=== PATIENT | male | born 1970 | race Caucasian/White ===

== ENCOUNTER 2017-04-14 05:56 | Inpatient (IN) | payer OTHER, SELFPAY ==
[2017-04-14] VITALS (10 sets, daily range): BP systolic 124–146; BP diastolic 72–81; PULSE 80–128; RESP 12–18; TEMP 36.6–37.1; O2SAT 94–98; BMI 39.7; BMI 39.8
--- NOTE | 2017-04-14 06:16 | EKG12_ITS ---
Test Reason : Blood Pressure : / mmHG Vent. Rate : 116 BPM Atrial Rate : 116 BPM P-R Int : 142 ms QRS Dur : 100 ms QT Int : 302 ms P-R-T Axes : 070 -15 066 degrees QTc Int : 419 ms Sinus tachycardia with Premature atrial complexes Septal infarct , age undetermined Abnormal ECG Confirmed by JERRY STEPHENSON, SOLA ([id number]), news video editor SHANTAL MEJIA ([id number]) on 04/17/2017 3:53:41 PM Referred By: ALEKSANDR Confirmed By:SOLA EDWARDS MD
[2017-04-14] MEDS: 0.9% Normal Saline 1,000 ML 1000 ML IV ×2 (06:26)
--- NOTE | 2017-04-14 06:28 | ED.VISSUMM ---
- ER Visit Summary Date of Service: 04/14/17 Chief Complaint: [] Lightheadedness with left leg pain History of Present Illness: The patient is a 46 M last 2 days he has had left leg pain. Gradual onset. He felt some chills yesterday. No vertigo. He stated that when he gets up he feels a little bit lightheaded. He noticed his left [place] was red when he came into the emergency department. He had checked it at home. No leg trauma. Never had that before. No PE or DVT risk factors. No home treatment. Physical Examination: Vital signs reviewed General: Well-nourished well-developed Head: Normocephalic atraumatic Eyes: Pupils equal round and reactive to light extraocular movements intact ENT: TMs clear no hemotympanum no trauma Neck: Nontender full range of motion Cardiovascular: Regular cardia with normal rhythm no murmurs normal S1-S2 Respiratory: No distress clear to auscultation bilaterally chest nontender Abdomen: Soft nontender nondistended normal bowel sounds no masses Back: Nontender no CVA tenderness Extremities: Lower extremity has a cellulitis with redness warmth and tenderness from the knee to the ankle. It is about 80% affected on the anterior portion. It wraps around the posterior portion to affect approximately 40%. The foot is spared. The thigh is spared. Neuro alert oriented cranial nerves II through XII intact normal strength sensation reflexes Test Results: [] Emergency Department Course and Treatment: [] This time I feel the patient has significant cellulitis. Started on IV fluids given morphine and vancomycin. Lab work obtained. Show white count 21.9. Chemistries normal except sodium 134. CO2 is 20. Lactate 0.9. Liver function tests normal. Coags pending. The patient has a cellulitis with sepsis. No evidence of severe sepsis or septic shock. EKG shows sinus at 116. The patient will need to be admitted. I do not feel he has a DVT. His foot is spared. This is definitely a cellulitic infection. Treatment Plan: [] Disposition: [] Impression: [] Left lower extremity cellulitis Sepsis syndrome This note was generated with [employer] dictation software. It may contain incorrect words, spelling, and punctuation that were not noted in review of the chart prior to signing ED Disposition - Plan for ED Patient: Chief Complaint: Dizziness Referrals: Care Physician,No Primary [Primary Care Provider] -
[2017-04-14 06:48] LABS: ALB/GLOB Ratio 0.7 RATIO (0.9-2.4); AST(SGOT) 21 U/L (15-37); Alanine Aminotransfer ALT/SGPT 24 U/L (16-61); Albumin, Serum 3.2 g/dL (3.2-5.0); Alkaline Phosphatase 72 U/L (45-117); Anion Gap 11 (5-15); BUN 17 mg/dL (7-18); BUN/Creat Ratio 15.2 RATIO (10-20); Calcium,Total 8.7 mg/dL (8.5-10.1); Chloride 103 mmol/L (98-107); Creatinine, Serum 1.12 mg/dL (0.70-1.30); EST Glomerular Filtration Rate 75 mL/min (>60); Est Glom Filt Rate - Afr Amer 91 mL/min (>60); Estimated Creatinine Clearance 101.18 ml/min; Globulin 4.6 g/dL (2.2-4.2); Glucose 123 mg/dL (74-106); Lactic Acid 0.9 mmol/L (0.4-2.0); Potassium 3.6 mmol/L (3.5-5.1); Protein, Total 7.8 g/dL (6.4-8.2); Sodium Level 134 mmol/L (136-145)
[2017-04-14 06:50] LABS: Absolute Lymphocyte Count 1.18 X10^3/ul (0.83-4.51); Basophil# 0.05 X10^3/uL; Basophil% 0.2 % (0-1); Differential Indicated SCAN CRITERIA MET; Eosinophil# 0.01 X10^3/uL; Hematocrit 36.5 % (40-54); Hemoglobin 11.9 g/dl (13.0-16.5); Lymphocyte # 1.18 X10^3/ul (4.0); Lymphocyte % 5.4 % (19-41); Mean Corp Hgb Conc 32.6 g/gl (32-36); Mean Corpuscular Hgb 25.9 pg (27.0-32.0); Mean Corpuscular Volume 79.3 fL (80-94); Mean Platelet Vol. 10.8 fl (6.2-12.0); Monocyte# 1.59 X10^3/uL; Monocyte% 7.3 % (0-10); Neutrophil # 18.97 X10^3/uL (2.7-7.7); Neutrophil % 86.7 % (47-70); POSITIVE COUNT NO; POSITIVE DIFFERENTIAL YES; POSITIVE MORPHOLOGY YES; Platelet Count 257 K/mm3 (150-450); RBC Distribution Width CV 15.5 % (11.6-14.6); RBC Distribution Width SD 44.2 fl (35.1-43.9); White Blood Count 21.9 K/mm3 (4.4-11.0)
[2017-04-14 06:52] LABS: International Normalized Ratio 1.3; Prothrombin Time (Protime)PT. 16.5 SECONDS (11.7-14.9)
--- NOTE | 2017-04-14 06:52 | PCM.HP.STD ---
Problem List (1) Anxiety and depression Status: Chronic (2) Obesity (BMI 30-39.9) Status: Chronic (3) Hyperlipidemia Status: Chronic Qualifiers: Hyperlipidemia type: unspecified Qualified Code(s): E78.5 - Hyperlipidemia, unspecified (4) GERD (gastroesophageal reflux disease) Status: Chronic Qualifiers: Esophagitis presence: esophagitis presence not specified Qualified Code(s): K21.9 - Gastro-esophageal reflux disease without esophagitis (5) Chronic back pain Status: Chronic Qualifiers: Back pain location: back pain in unspecified location Back pain laterality: unspecified Qualified Code(s): M54.9 - Dorsalgia, unspecified; G89.29 - Other chronic pain (6) RLS (restless legs syndrome) Status: Chronic (7) Insomnia Status: Chronic Qualifiers: Insomnia type: unspecified Qualified Code(s): G47.00 - Insomnia, unspecified (8) Left leg cellulitis Status: Acute (9) Sepsis Status: Acute Qualifiers: Sepsis type: sepsis due to unspecified organism Qualified Code(s): A41.9 - Sepsis, unspecified organism History of Present Illness Date of Admission: 04/14/17 Chief Complaint: Chills, LLE pain, erythema The patient is a 46 y/o M w/ PMHx: Chronic Back Pain, RLS, Anxiety and Depression, Obesity, HLD, RLS, Insomnia, GERD who presents to the [facility] ED on 04/14/17 with history of LLE pain, progressively worsening with onset erythema extending from the ankle to knee, increased warmth to touch, increasing edema with associated onset subjective fever and chills over the last 4 days, more pronounced sxs x 24 hours. 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 He denies any injury or cut to the leg but does have abrasions and cannot say the etiology or event but R > L. In the ED work-up included T 98.4, HR 128-->106 after 1L NS, continued hydration ongoing in the ED w/ additional 1L NS, BP 146/7500>127/81, RR 12, 97% on RA, CBC w/ WBC 21.9, Hgb 11.9, Plts 257, coags pending, CMP w/ Na 134, CO2 20, glucose 123, LA 0.9, Bld Cx x 2 obtained per ED and pending. In the ED patient administered IVFs and vanc in addition to morphine x 1. Past Medical History Past Medical History (Chronic Problems): Chronic Problems Anxiety and depression (Chronic) Obesity (BMI 30-39.9) (Chronic) Hyperlipidemia (Chronic) GERD (gastroesophageal reflux disease) (Chronic) Chronic back pain (Chronic) RLS (restless legs syndrome) (Chronic) Insomnia (Chronic) Allergies celecoxib [From Celebrex] Allergy (Verified 04/14/17 05:57) Hives Home Medications: Ambulatory Orders Medication Instructions Recorded Citalopram Hydrobromide [Celexa] 40 mg PO DAILY 06/21/13 Lovastatin [Mevacor] 40 mg PO DAILY 06/21/13 Omeprazole [Prilosec] 40 mg PO DAILY 06/21/13 Pramipexole Di-HCl [Mirapex] 0.125 mg PO DAILY 06/21/13 Tizanidine HCl [Zanaflex] 8 mg PO Q8H 06/21/13 Trazodone HCl [Desyrel] 100 mg PO QHS 06/21/13 Sucralfate [Carafate] 1 gm PO 4X/DAY #60 tablet 08/20/14 Ibuprofen [Motrin] 800 mg PO TID PRN PRN #20 tablet 01/18/15 Surgical History: no surgical history Psychiatric History: Anxiety, Depression Lives: Spouse/ Significant Other Smoking Status: Current every day smoker - Vap usage, equivalent 1-2 cig per day he notes. Tobacco Use: Cigarettes Alcohol: None Drugs: None - *Family History Maternal History Items: - - Mother with history of colon CA, at 74 y/o. Paternal History Items: - - Father with history of CAD, [place] age 65 y/o. Review of Systems Constitutional: Reports: Chills, Fever, Malaise, Weakness, Fatigue. Denies: Weight Change HEENT: Denies: Head Aches, Sinus Congestion, Sinus Drainage Cardiovascular: Denies: Chest Pain, Palpitations Respiratory: Denies: Cough, Shortness of breath at rest, Sputum production Gastrointestinal: Denies: Abdominal Pain, Nausea, Vomiting Genitourinary: Denies: Dysuria Musculoskeletal: Reports: Back Pain, Joint stiffness, Joint swelling, Joint Tenderness, Leg Pain. Denies: Joint Pain Skin: Reports: Skin Changes. Denies: Rash, Wounds Neurological: Denies: Numbness, Tingling, Focal weakness Psychiatric: Reports: Anxiety, Depression. Denies: Homicidal Ideations, Suicidal Ideations Hematologic/ Lymphatic: Denies: Easy Bruising, Easy Bleeding VTE Information - Inpt Only VTE Present on Admission: No VTE Mechan Device Prophylaxis: SCD's VTE Pharm Prophylaxis ordered?: Yes Patient Problems: Active and Suspected Problems Left leg cellulitis (Acute) Sepsis (Acute) Subjective: Seated upright in the ED bed, fatigued appearance, HR improved, low 100 on telemetry currently. Objective: Physical Examination: General: awake, alert, oriented x 3 and cooperative, seated upright in the ED bed in no apparent distress, fatigued. Skin: normal color, turgor, no icterus, cyanosis except occasional various staged, non-infected appearing abrasion to BL LE [place] primarily, R>L, LLE ankle to distal knee, circumferential erythema, warm to touch, mild edema, TTP. HEENT: AT/NC, EOMI, PERRLA, mildly dry MM, no carotid bruits or JVD noted. Lungs: CTA bilaterally, moderate effort, mild decrease BL bases, no rales, ronchi or wheezing. Heart: Tachycardic with regular rhythm; no gallop, rub audible. Abdomen: soft, obese, NTTP, ND, normal BS, no HSM. Extremities: no cyanosis, clubbing, see skin. Neurological: patient awake, alert, oriented x 3; cognitive function intact; pupils equally reactive to light and accomodation; cranial nerves II-XII grossly normal, moving all 4 extremities, no focal deficits, strength mildly to moderately globally decreased secondary to acute presentation. Psychiatric: affect appears normal, no acute evidence of depressive or anxiety feelings. - Physical Exam Vital Signs Temp Pulse Resp BP Pulse Ox 98.4 F 106 H 12 127/81 H 97 04/14/17 05:57 04/14/17 06:29 04/14/17 06:29 04/14/17 06:29 04/14/17 06:29 Oxygen Flow Rate 2 Oxygen Delivery Method Room Air Weight: 326 lb 8.073 oz Body Mass Index (BMI) 39.7 Laboratory Tests Past 24 Hrs 04/14/17 04/14/17 04/14/17 06:10 06:10 06:10 WBC 21.9 H RBC 4.60 Hgb 11.9 L Hct 36.5 L MCV 79.3 L MCH 25.9 L MCHC 32.6 RDW 15.5 H RDW Differential 44.2 H Plt Count 257 MPV 10.8 Immature Gran % (Auto) 0.400 Neut % (Auto) 86.7 H Lymph % (Auto) 5.4 L [place] % (Auto) 7.3 Eos % (Auto) 0.0 Baso % (Auto) 0.2 Absolute Neuts (auto) 19.0 H Absolute Lymphs (auto) 1.18 Total Counted Pending PT Pending INR Pending APTT Pending Sodium 134 L Potassium 3.6 Chloride 103 Carbon Dioxide 20.0 L Anion Gap 11 BUN 17 Creatinine 1.12 Estim Creat Clear Calc 101.18 Est GFR (MDRD) Af Amer 91 Est GFR (MDRD) Non-Af 75 BUN/Creatinine Ratio 15.2 Glucose 123 H Lactic Acid Calcium 8.7 Total Bilirubin 0.50 AST 21 ALT 24 Alkaline Phosphatase 72 Total Protein 7.8 Albumin 3.2 Globulin 4.6 H Albumin/Globulin Ratio 0.7 L 04/14/17 06:10 WBC RBC Hgb Hct MCV MCH MCHC RDW RDW Differential Plt Count MPV Immature Gran % (Auto) Neut % (Auto) Lymph % (Auto) [place] % (Auto) Eos % (Auto) Baso % (Auto) Absolute Neuts (auto) Absolute Lymphs (auto) Total Counted PT INR APTT Sodium Potassium Chloride Carbon Dioxide Anion Gap BUN Creatinine Estim Creat Clear Calc Est GFR (MDRD) Af Amer Est GFR (MDRD) Non-Af BUN/Creatinine Ratio Glucose Lactic Acid 0.9 Calcium Total Bilirubin AST ALT Alkaline Phosphatase Total Protein Albumin Globulin Albumin/Globulin Ratio Assessment/Plan Active and Suspected Problems Left leg cellulitis (Acute) Sepsis (Acute) The patient is a 46 y/o M w/ PMHx: Chronic Back Pain, RLS, Anxiety and Depression, Obesity, HLD, RLS, Insomnia, GERD, Tobacco who presents to the [facility] ED on 04/14/17 with history of LLE pain, progressively worsening with onset erythema extending from the ankle to knee, increased warmth to touch, increasing edema with associated onset subjective fever and chills over the last 4 days, more pronounced sxs x 24 hours. (1) Acute Sepsis secondary to Acute LLE Extremity Cellulitis: Admission CBC w/ WBC 21.9, L shift, tachycardic, LA normal, afebrile in the ED but noted subjective at home. Will admit to [facility], maintain on IV vancomycin given severity of appearance and de-escalate as able, plan repeat CBC in AM, continue affected extremity elevation above heart when seated and in bed, monitor erythema outline with VS checks. LLE DVT US ordered, pending. (2) Hyponatremia, Mild: Admission Na 134, likely hypovolemic, mild, secondary to #1, continue hydration, repeat BMP in AM. (3) Microcytic Anemia, ? New, Chronic; Unclear onset, prior labs from 1563-3417 normal, will obtain stool guiac, iron panel, ferritin. Start Fe Supplementation. (4) Hyperglycemia: Admission glucose 123, HgBA1c pending. (5) Obesity: Weight loss and lifestyle changes encouraged. Nutrition consulted for education. (6) Tobacco Abuse: Encouraged cessation, inpatient consultation per RT. (7) Chronic Back Pain: Maintain on home regimen zanaflex, PRN motrin, encourage frequent positioning. (8) RLS: Continue home requip. (9) Anxiety and Depression, Insomnia: Maintain on home celexa, trazodone. (10) GERD: Famotidine, sucralafate. (11) DVT prophylaxis: SCDs, lovenox. Code Visit Inpatient E&M: 65827 Init Hosp L3
[2017-04-14 06:53] LABS: Partial Thromboplast Time 39.2 Seconds (24.1-36.2)
--- NOTE | 2017-04-14 07:02 | HP.PCM_ITS ---
Problem List (1) Anxiety and depression Status: Chronic (2) Obesity (BMI 30-39.9) Status: Chronic (3) Hyperlipidemia Status: Chronic Qualifiers: Hyperlipidemia type: unspecified Qualified Code(s): E78.5 - Hyperlipidemia , unspecified (4) GERD (gastroesophageal reflux disease) Status: Chronic Qualifiers: Esophagitis presence: esophagitis presence not specified Qualified Code(s) : K21.9 - Gastro-esophageal reflux disease without esophagitis (5) Chronic back pain Status: Chronic Qualifiers: Back pain location: back pain in unspecified location Back pain laterality : unspecified Qualified Code(s): M54.9 - Dorsalgia, unspecified; G89.29 - Other chronic pain (6) RLS (restless legs syndrome) Status: Chronic (7) Insomnia Status: Chronic Qualifiers: Insomnia type: unspecified Qualified Code(s): G47.00 - Insomnia, unspecified (8) Left leg cellulitis Status: Acute (9) Sepsis Status: Acute Qualifiers: Sepsis type: sepsis due to unspecified organism Qualified Code(s): A41.9 - Sepsis, unspecified organism History of Present Illness Date of Admission: 04/14/17 Chief Complaint: Chills, LLE pain, erythema The patient is a 46 y/o M w/ PMHx: Chronic Back Pain, RLS, Anxiety and Depression, Obesity, HLD, RLS, Insomnia, GERD who presents to the [facility] ED on with history of LLE pain, progressively worsening with onset erythema extending from the ankle to knee, increased warmth to touch, increasing edema with associated onset subjective fever and chills over the last 4 days, more pronounced sxs x 24 hours. 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 He denies any injury or cut to the leg but does have abrasions and cannot say the etiology or event but R > L. In the ED work-up included T 98.4, HR 128-->106 after 1L NS, continued hydration ongoing in the ED w/ additional 1L NS, BP 146/7500>127/81, RR 12, 97% on RA, CBC w/ WBC 21.9, Hgb 11.9, Plts 257, coags pending, CMP w/ Na 134, CO2 20, glucose 123, LA 0.9, Bld Cx x 2 obtained per ED and pending. In the ED patient administered IVFs and vanc in addition to morphine x 1. Past Medical History Past Medical History (Chronic Problems): Chronic Problems Anxiety and depression (Chronic) Obesity (BMI 30-39.9) (Chronic) Hyperlipidemia (Chronic) GERD (gastroesophageal reflux disease) (Chronic) Chronic back pain (Chronic) RLS (restless legs syndrome) (Chronic) Insomnia (Chronic) Allergies celecoxib [From Celebrex] Allergy (Verified 04/14/17 05:57) Hives Home Medications: Ambulatory Orders Medication Instructions Recorded Citalopram Hydrobromide [Celexa] 40 mg PO DAILY 06/21/13 Lovastatin [Mevacor] 40 mg PO DAILY 06/21/13 Omeprazole [Prilosec] 40 mg PO DAILY 06/21/13 Pramipexole Di-HCl [Mirapex] 0.125 mg PO DAILY 06/21/13 Tizanidine HCl [Zanaflex] 8 mg PO Q8H 06/21/13 Trazodone HCl [Desyrel] 100 mg PO QHS 06/21/13 Sucralfate [Carafate] 1 gm PO 4X/DAY #60 tablet 08/20/14 Ibuprofen [Motrin] 800 mg PO TID PRN PRN #20 tablet 01/18/15 Surgical History: no surgical history Psychiatric History: Anxiety, Depression Lives: Spouse/ Significant Other Smoking Status: Current every day smoker - Vap usage, equivalent 1-2 cig per day he notes. Tobacco Use: Cigarettes Alcohol: None Drugs: None - *Family History Maternal History Items: - - Mother with history of colon CA, at 74 y/o. Paternal History Items: - - Father with history of CAD, [place] age 65 y/o. Review of Systems Constitutional: Reports: Chills, Fever, Malaise, Weakness, Fatigue. Denies: Weight Change HEENT: Denies: Head Aches, Sinus Congestion, Sinus Drainage Cardiovascular: Denies: Chest Pain, Palpitations Respiratory: Denies: Cough, Shortness of breath at rest, Sputum production Gastrointestinal: Denies: Abdominal Pain, Nausea, Vomiting Genitourinary: Denies: Dysuria Musculoskeletal: Reports: Back Pain, Joint stiffness, Joint swelling, Joint Tenderness, Leg Pain. Denies: Joint Pain Skin: Reports: Skin Changes. Denies: Rash, Wounds Neurological: Denies: Numbness, Tingling, Focal weakness Psychiatric: Reports: Anxiety, Depression. Denies: Homicidal Ideations, Suicidal Ideations Hematologic/ Lymphatic: Denies: Easy Bruising, Easy Bleeding VTE Information - Inpt Only VTE Present on Admission: No VTE Mechan Device Prophylaxis: SCD's VTE Pharm Prophylaxis ordered?: Yes Patient Problems: Active and Suspected Problems Left leg cellulitis (Acute) Sepsis (Acute) Subjective: Seated upright in the ED bed, fatigued appearance, HR improved, low 100 on telemetry currently. Objective: Physical Examination: General: awake, alert, oriented x 3 and cooperative, seated upright in the ED bed in no apparent distress, fatigued. Skin: normal color, turgor, no icterus, cyanosis except occasional various staged, non-infected appearing abrasion to BL LE [place] primarily, R>L, LLE ankle to distal knee, circumferential erythema, warm to touch, mild edema, TTP. HEENT: AT/NC, EOMI, PERRLA, mildly dry MM, no carotid bruits or JVD noted. Lungs: CTA bilaterally, moderate effort, mild decrease BL bases, no rales, ronchi or wheezing. Heart: Tachycardic with regular rhythm; no gallop, rub audible. Abdomen: soft, obese, NTTP, ND, normal BS, no HSM. Extremities: no cyanosis, clubbing, see skin. Neurological: patient awake, alert, oriented x 3; cognitive function intact; pupils equally reactive to light and accomodation; cranial nerves II-XII grossly normal, moving all 4 extremities, no focal deficits, strength mildly to moderately globally decreased secondary to acute presentation. Psychiatric: affect appears normal, no acute evidence of depressive or anxiety feelings. - Physical Exam Vital Signs Temp Pulse Resp BP Pulse Ox 98.4 F 106 H 12 127/81 H 97 04/14/17 05:57 04/14/17 06:29 04/14/17 06:29 04/14/17 06:29 04/14/17 06:29 Oxygen Flow Rate 2 Oxygen Delivery Method Room Air Weight: 326 lb 8.073 oz Body Mass Index (BMI) 39.7 Laboratory Tests Past 24 Hrs 04/14/17 04/14/17 04/14/17 06:10 06:10 06:10 WBC 21.9 H RBC 4.60 Hgb 11.9 L Hct 36.5 L MCV 79.3 L MCH 25.9 L MCHC 32.6 RDW 15.5 H RDW Differential 44.2 H Plt Count 257 MPV 10.8 Immature Gran % (Auto) 0.400 Neut % (Auto) 86.7 H Lymph % (Auto) 5.4 L [place] % (Auto) 7.3 Eos % (Auto) 0.0 Baso % (Auto) 0.2 Absolute Neuts (auto) 19.0 H Absolute Lymphs (auto) 1.18 Total Counted Pending PT Pending INR Pending APTT Pending Sodium 134 L Potassium 3.6 Chloride 103 Carbon Dioxide 20.0 L Anion Gap 11 BUN 17 Creatinine 1.12 Estim Creat Clear Calc 101.18 Est GFR (MDRD) Af Amer 91 Est GFR (MDRD) Non-Af 75 BUN/Creatinine Ratio 15.2 Glucose 123 H Lactic Acid Calcium 8.7 Total Bilirubin 0.50 AST 21 ALT 24 Alkaline Phosphatase 72 Total Protein 7.8 Albumin 3.2 Globulin 4.6 H Albumin/Globulin Ratio 0.7 L 04/14/17 06:10 WBC RBC Hgb Hct MCV MCH MCHC RDW RDW Differential Plt Count MPV Immature Gran % (Auto) Neut % (Auto) Lymph % (Auto) [place] % (Auto) Eos % (Auto) Baso % (Auto) Absolute Neuts (auto) Absolute Lymphs (auto) Total Counted PT INR APTT Sodium Potassium Chloride Carbon Dioxide Anion Gap BUN Creatinine Estim Creat Clear Calc Est GFR (MDRD) Af Amer Est GFR (MDRD) Non-Af BUN/Creatinine Ratio Glucose Lactic Acid 0.9 Calcium Total Bilirubin AST ALT Alkaline Phosphatase Total Protein Albumin Globulin Albumin/Globulin Ratio Assessment/Plan Active and Suspected Problems Left leg cellulitis (Acute) Sepsis (Acute) The patient is a 46 y/o M w/ PMHx: Chronic Back Pain, RLS, Anxiety and Depression, Obesity, HLD, RLS, Insomnia, GERD, Tobacco who presents to the [facility] ED on 04/14/17 with history of LLE pain, progressively worsening with onset erythema extending from the ankle to knee, increased warmth to touch, increasing edema with associated onset subjective fever and chills over the last 4 days, more pronounced sxs x 24 hours. (1) Acute Sepsis secondary to Acute LLE Extremity Cellulitis: Admission CBC w/ WBC 21.9, L shift, tachycardic, LA normal, afebrile in the ED but noted subjective at home. Will admit to [facility], maintain on IV vancomycin given severity of appearance and de-escalate as able, plan repeat CBC in AM, continue affected extremity elevation above heart when seated and in bed, monitor erythema outline with VS checks. LLE DVT US ordered, pending. (2) Hyponatremia, Mild: Admission Na 134, likely hypovolemic, mild, secondary to #1, continue hydration, repeat BMP in AM. (3) Microcytic Anemia, ? New, Chronic; Unclear onset, prior labs from [id number] normal, will obtain stool guiac, iron panel, ferritin. Start Fe Supplementation. (4) Hyperglycemia: Admission glucose 123, HgBA1c pending. (5) Obesity: Weight loss and lifestyle changes encouraged. Nutrition consulted for education. (6) Tobacco Abuse: Encouraged cessation, inpatient consultation per RT. (7) Chronic Back Pain: Maintain on home regimen zanaflex, PRN motrin, encourage frequent positioning. (8) RLS: Continue home requip. (9) Anxiety and Depression, Insomnia: Maintain on home celexa, trazodone. (10) GERD: Famotidine, sucralafate. (11) DVT prophylaxis: SCDs, lovenox. Code Visit Inpatient E&M: 77316 Init Hosp L3
--- NOTE | 2017-04-14 07:57 | VDLE_ITS ---
Reason For Study: swelling Procedure LEFT Exam performed portable in patient room. GSV is normal. The exam was diagnostic. CFV is compressible, spontaneous, phasic, A preliminary report was called and/or faxed competent, and demonstrates normal to MS3 remote sensing engineer. augmentation. FV is compressible, spontaneous, phasic, competent and demonstrates normal augmentation. POP V is compressible, spontaneous, phasic, competent and demonstrates normal augmentation. T/P Trunk is compressible. PTV is compressible. LT PerV is compressible. Interpretation Summary There is no evidence of left lower extremity deep vein thrombosis. Left greater saphenous vein appears patent and compressible segmentally. Ordering Physician: Ada Pulido Performed By: Refugio Cunningham RVTheodore
[2017-04-14] MEDS: oxyCODONE 5 MG Tablet PO ×2 (08:52→20:32)
[2017-04-14] MEDS: 0.9% Normal Saline 1,000 ML 150 ML IV ×2 (08:53→16:28)
--- NOTE | 2017-04-14 10:19 | CASEMGMT ---
Face to Face with patient for initial transition planning/care coordination assessment. RN MARCI introduced self and role at [facility], pt voices understanding and consents to assessment at this time. Pt is sitting up in chair in no distress at this time. Pt is A/O x4 at this time and answers all questions appropriately at this time. Care providers, pharmacy, and demographics verified/updated. See attached link. Pt voices no further concerns/needs at this time. Advised pt to ask for CM if any further questions/concerns/needs arise, voices understanding. CM to follow for any further discharge planning/needs. PLAN: [place] [facility]
[2017-04-14] MEDS: Docusate Sodium 100 MG Capsule PO (10:30)
[2017-04-14] MEDS: Citalopram 40 MG TABLET PO (10:30)
[2017-04-14] MEDS: Pramipexole Di-HCl 0.125 MG Tablet PO (10:30)
[2017-04-14] MEDS: Pantoprazole Sodium 40 MG Tablet PO (10:30)
[2017-04-14] MEDS: Enoxaparin 40 MG/0.4 ML Syringe SC (10:30)
[2017-04-14 10:55] LABS: Ferritin 111 ng/mL (26-388); Iron 12 ug/dL (65-175); Iron Binding Capacity,Total 347 ug/dL (250-450); Magnesium 1.9 mg/dL (1.6-2.6); PERCENT IRON SATURATION 3.5 % (15.0-55.0)
[2017-04-14] MEDS: Sucralfate 1 GM Tablet PO ×3 (11:51→20:26)
[2017-04-14] MEDS: tiZANidine HCl 2 MG Tablet 8 MG PO ×2 (13:19→20:26)
[2017-04-14] MEDS: Ferrous Gluconate 325 MG Tablet PO (16:29)
[2017-04-14] MEDS: Atorvastatin Calcium 10 MG Tablet PO (20:26)
[2017-04-15 02:00] VITALS: BP 139/77; PULSE 79; RESP 16; TEMP 36.6; O2SAT 96
[2017-04-15] MEDS: 0.9% Normal Saline 1,000 ML 150 ML IV ×3 (02:11→21:03)
[2017-04-15] MEDS: Sucralfate 1 GM Tablet PO ×4 (06:45→21:07)
[2017-04-15] MEDS: tiZANidine HCl 2 MG Tablet 8 MG PO ×3 (06:45→21:06)
[2017-04-15] MEDS: oxyCODONE 5 MG Tablet PO ×2 (06:47→13:24)
[2017-04-15 07:09] LABS: Absolute Lymphocyte Count 1.39 X10^3/ul (0.83-4.51); Absolute Neutrophil Count 11.7 X10^3/uL (2.0-7.7); Basophil# 0.03 X10^3/uL; Basophil% 0.2 % (0-1); Eosinophil# 0.23 X10^3/uL; Eosinophils% 1.5 % (0-5); Hematocrit 31.4 % (40-54); Hemoglobin 10.2 g/dl (13.0-16.5); Lymphocyte # 1.39 X10^3/ul (4.0); Lymphocyte % 9.4 % (19-41); Mean Corp Hgb Conc 32.5 g/gl (32-36); Mean Corpuscular Hgb 26.4 pg (27.0-32.0); Mean Corpuscular Volume 81.1 fL (80-94); Monocyte# 1.44 X10^3/uL; Monocyte% 9.7 % (0-10); Neutrophil % 78.9 % (47-70); Platelet Count 218 K/mm3 (150-450); RBC Distribution Width CV 15.7 % (11.6-14.6); RBC Distribution Width SD 46.1 fl (35.1-43.9); Red Blood Count 3.87 M/mm3 (4.6-6.2); White Blood Count 14.8 K/mm3 (4.4-11.0)
--- NOTE | 2017-04-15 07:16 | PCM.PN.HOSP ---
Patient Problems: Active and Suspected Problems Left leg cellulitis (Acute) Sepsis (Acute) Subjective: The patient is a 46 y/o M w/ PMHx: Chronic Back Pain, RLS, Anxiety and Depression, Obesity, HLD, RLS, Insomnia, GERD, Tobacco who presents to the [facility] ED on 04/14/17 with history of LLE pain, progressively worsening with onset erythema extending from the ankle to knee, increased warmth to touch, increasing edema with associated onset subjective fever and chills over the last 4 days, more pronounced sxs x 24 hours. Admission CBC w/ WBC 21.9, L shift, tachycardic, LA normal, afebrile in the ED but noted subjective at home. Admitted to [facility], maintained on IV vancomycin given severity of appearance and de-escalate as able, 04/15/17 CBC w/ WBC 14.8 with improved L shift, improved appearance LLE, continue to trend CBC, continue affected extremity elevation above heart when seated and in bed, add PHILLIP wrap with elevation, monitor erythema outline with VS checks. LLE DVT US ordered, preliminary negative. Admission Na 134, likely hypovolemic, mild, secondary to #1, hydration administered, 04/15/17 Na 140. Microcytic Anemia, ? New, Chronic; Unclear onset, prior labs from [id number] normal, negative stool guiac, iron panel, ferritin w/ low Fe, low Fe saturation, normal ferritin consistent with Fe Deficiency Anemia. Maintained on Fe Supplementation. Admission glucose 123, HgBA1c 6.0%. Patient overnight with no acute events per self and per nursing report. He does state that left lower extremity does look improved in appearance with less redness but continues to be uncomfortable and tender to palpation with mild edema. DVT preliminary results yesterday negative for acute DVT. Patient denies fevers, chills, nausea, emesis, abdominal pain, chest pain or dyspnea. Objective: Physical Examination: General: awake, alert, oriented x 3 and cooperative, seated upright in the bed in no apparent distress. Skin: normal color, turgor, no icterus, cyanosis except occasional various staged, non-infected appearing abrasion to BL LE [place] primarily, R>L. Improved and receding LLE ankle to distal knee, circumferential erythema, less warm to touch, still mild edema, still TTP but improved from day prior. HEENT: AT/NC, EOMI, PERRLA, MMM. Lungs: CTA bilaterally, moderate effort, mild decrease BL bases, no rales, ronchi or wheezing. Heart: Tachycardic with regular rhythm; no gallop, rub audible. Abdomen: soft, obese, NTTP, ND, normal BS. Extremities: no cyanosis, clubbing, see skin. Neurological: patient awake, alert, oriented x 3; cognitive function intact; pupils equally reactive to light and accomodation; cranial nerves II-XII grossly normal, moving all 4 extremities, no focal deficits, strength improved, mildly globally decreased. Psychiatric: affect appears normal, no acute evidence of depressive or anxiety feelings. Vitals/I&O's: Vital Signs Temp Pulse Resp BP Pulse Ox 97.9 F 79 16 139/77 H 96 04/15/17 02:00 04/15/17 02:00 04/15/17 02:00 04/15/17 02:00 04/15/17 02:00 Oxygen Delivery Method Room Air Weight: 326 lb 8.073 oz Body Mass Index (BMI) 39.7 Intake and Output for Last 24 Hours 04/13/17 04/14/17 04/15/17 23:59 23:59 23:59 Intake Total 3287 / 3287 2570 / 2570 Output Total 600 / 600 Balance 3287 / 3287 1970 / 1970 Microbiology Past 72 Hours 04/14/17 17:30 Stool Stool Occult Blood (MANI) - Final Laboratory Results 04/15/17 05:18: Sodium Pending, Potassium Pending, Chloride Pending, Carbon Dioxide Pending, Anion Gap Pending, BUN Pending, Creatinine Pending, Est GFR (MDRD) Af Amer Pending, Est GFR (MDRD) Non-Af Pending, BUN/Creatinine Ratio Pending, Glucose Pending, Calcium Pending 04/15/17 05:18: WBC Pending, RBC Pending, Hgb Pending, Hct Pending, MCV Pending, MCH Pending, MCHC Pending, RDW Pending, RDW Differential Pending, Plt Count Pending, Neut % (Auto) Pending, Absolute Neuts (auto) Pending, Total Counted Pending Current Medications Acetaminophen (Tylenol) 650 mg PO Q6H PRN PRN PRN Reason: Mild Pain (scale 0-3)/T>100.7 Al Hydroxide/Mg Hydroxide (Mylanta Ii) 30 ml PO Q6H PRN PRN PRN Reason: Gastric burning Atorvastatin Calcium (Lipitor) 10 mg PO DAILY@2200 COUNTS [facility]CLUDE 234 BEDS AT THE [facility] Last Admin: 04/14/17 20:26 Dose: 10 mg Citalopram Hydrobromide (Celexa) 40 mg PO DAILY COUNTS INCLUDE 234 BEDS AT THE [facility] Last Admin: 04/14/17 10:30 Dose: 40 mg Docusate Sodium (Colace) 100 mg PO BID COUNTS INCLUDE 234 BEDS AT THE [facility] Last Admin: 04/14/17 20:29 Dose: Not Given Enoxaparin Sodium (Lovenox) 40 mg SC DAILY@1000 COUNTS [facility]CLUDE 234 BEDS AT THE [facility] Last Admin: 04/14/17 10:30 Dose: 40 mg [facility] Last Admin: 04/14/17 16:29 Dose: 325 mg Hydralazine HCl (Apresoline) 10 mg IV Q4H PRN PRN PRN Reason: SBP > 160 Sodium Chloride () 1,000 mls @ 150 mls/hr IV .Q6H40M COUNTS INCLUDE 234 BEDS AT THE [facility] Last Admin: 04/15/17 02:11 Dose: 150 mls/hr Vancomycin HCl 1,500 mg/ (Sodium Chloride) 530 mls @ 250 mls/hr IV Q12H COUNTS INCLUDE 234 BEDS AT THE [facility] Last Admin: 04/15/17 03:50 Dose: 250 mls/hr Ibuprofen (Motrin) 800 mg PO TID PRN PRN Reason: PAIN Magnesium Hydroxide (Milk Of Magnesia) 30 ml PO DAILY PRN PRN PRN Reason: Constipation Morphine Sulfate (Morphine) 2 - 4 mg IV Q3H PRN PRN PRN Reason: Severe Pain (pain scale 6-10) Last Admin: 04/14/17 13:17 Dose: 4 mg Morphine Sulfate (Morphine) 1 - 2 mg IV Q4H PRN PRN PRN Reason: Moderate Pain (pain scale 4-5) Nutritional Formula (Lactose Free) (Ensure Enlive) 120 ml PO 4X/DAY COUNTS INCLUDE 234 BEDS AT THE [facility] Last Admin: 04/14/17 20:29 Dose: Not Given Ondansetron HCl (Zofran) 4 mg IV Q8H PRN PRN PRN Reason: NAUSEA Oxycodone HCl (Oxyir) 5 mg PO Q4H PRN PRN PRN Reason: Moderate Pain (pain scale 4-5) Last Admin: 04/15/17 06:47 Dose: 5 mg Pantoprazole Sodium (Protonix) 40 mg PO DAILY COUNTS INCLUDE 234 BEDS AT THE [facility] Last Admin: 04/14/17 10:30 Dose: 40 mg Pramipexole Dihydrochloride (Mirapex) 0.125 mg PO DAILY COUNTS INCLUDE 234 BEDS AT THE [facility] Last Admin: 04/14/17 10:30 Dose: 0.125 mg Promethazine HCl (Phenergan (Ll)) 12.5 mg IV Q6H PRN PRN PRN Reason: NAUSEA/VOMITING Psyllium Hydrophilic Mucilloid (Metamucil) 1 packet PO DAILY PRN PRN PRN Reason: CONSTIPATION Sodium Chloride () 5 - 30 ml IV UD PRN PRN Reason: SALINE FLUSH Sucralfate (Carafate) 1 gm PO 1HR_ACHS COUNTS INCLUDE 234 BEDS AT THE [facility] Last Admin: 04/15/17 06:45 Dose: 1 gm Tizanidine HCl (Zanaflex) 8 mg PO Q8 COUNTS INCLUDE 234 BEDS AT THE [facility] Last Admin: 04/15/17 06:45 Dose: 8 mg Trazodone HCl (Desyrel) 100 mg PO QHS COUNTS INCLUDE 234 BEDS AT THE [facility] Last Admin: 04/14/17 20:26 Dose: 100 mg Assessment/Plan Active and Suspected Problems Left leg cellulitis (Acute) Sepsis (Acute) The patient is a 46 y/o M w/ PMHx: Chronic Back Pain, RLS, Anxiety and Depression, Obesity, HLD, RLS, Insomnia, GERD, Tobacco who presents to the [facility] ED on 04/14/17 with history of LLE pain, progressively worsening with onset erythema extending from the ankle to knee, increased warmth to touch, increasing edema with associated onset subjective fever and chills over the last 4 days, more pronounced sxs x 24 hours. (1) Acute Sepsis secondary to Acute LLE Extremity Cellulitis: Admission CBC w/ WBC 21.9, L shift, tachycardic, LA normal, afebrile in the ED but noted subjective at home. Admitted to [facility], maintained on IV vancomycin given severity of appearance and de-escalate as able, 04/15/17 CBC w/ WBC 14.8 with improved L shift, improved appearance LLE, continue to trend CBC, continue affected extremity elevation above heart when seated and in bed, add PHILLIP wrap with elevation, monitor erythema outline with VS checks. LLE DVT US ordered, preliminary negative. (2) Hyponatremia, Mild: Admission Na 134, likely hypovolemic, mild, secondary to #1, hydration administered, 04/15/17 Na 140. (3) Microcytic Anemia, ? New, Chronic; Unclear onset, prior labs from 3483-1770 normal, negative stool guiac, iron panel, ferritin w/ low Fe, low Fe saturation, normal ferritin consistent with Fe Deficiency Anemia. Maintained on Fe Supplementation. (4) Hyperglycemia: Admission glucose 123, HgBA1c 6.0%. (5) Obesity: Weight loss and lifestyle changes encouraged. Nutrition consulted for education. (6) Tobacco Abuse: Encouraged cessation, inpatient consultation per RT. (7) Chronic Back Pain: Maintain on home regimen zanaflex, PRN motrin, encourage frequent positioning. (8) RLS: Continue home requip. (9) Anxiety and Depression, Insomnia: Maintain on home celexa, trazodone. (10) GERD: Famotidine, sucralafate. (11) DVT prophylaxis: SCDs, lovenox. Code Visit Inpatient E&M: 92125 Subs Hosp L2
[2017-04-15 07:23] VITALS: O2SAT 96
[2017-04-15 07:30] LABS: POSITIVE COUNT NO; POSITIVE DIFFERENTIAL NO; POSITIVE MORPHOLOGY NO
[2017-04-15 08:19] LABS: Anion Gap 9 (5-15); BUN 11 mg/dL (7-18); BUN/Creat Ratio 12.1 RATIO (10-20); Calcium,Total 7.5 mg/dL (8.5-10.1); Chloride 109 mmol/L (98-107); Creatinine, Serum 0.91 mg/dL (0.70-1.30); EST Glomerular Filtration Rate 95 mL/min (>60); Est Glom Filt Rate - Afr Amer 115 mL/min (>60); Estimated Creatinine Clearance 121.23 ml/min; Glucose 80 mg/dL (74-106); Sodium Level 140 mmol/L (136-145)
[2017-04-15] MEDS: Ferrous Gluconate 325 MG Tablet PO ×2 (08:28→16:38)
[2017-04-15 08:38] VITALS: BP 98/59; PULSE 76; RESP 16; TEMP 36.6; O2SAT 96
[2017-04-15] MEDS: Docusate Sodium 100 MG Capsule PO (09:52)
[2017-04-15] MEDS: Citalopram 40 MG TABLET PO (09:52)
[2017-04-15] MEDS: Enoxaparin 40 MG/0.4 ML Syringe SC (09:53)
[2017-04-15] MEDS: Pantoprazole Sodium 40 MG Tablet PO (09:53)
[2017-04-15] MEDS: Pramipexole Di-HCl 0.125 MG Tablet PO (09:53)
[2017-04-15 14:38] VITALS: BP 116/61; PULSE 68; RESP 16; TEMP 37; O2SAT 97
[2017-04-15 20:00] VITALS: BP 126/78; PULSE 70; RESP 16; TEMP 36.8; O2SAT 95
[2017-04-15] MEDS: Atorvastatin Calcium 10 MG Tablet PO (21:09)
[2017-04-16 03:30] VITALS: BP 116/53; PULSE 75; RESP 18; TEMP 36.4; O2SAT 96
[2017-04-16] MEDS: 0.9% Normal Saline 1,000 ML 150 ML IV ×2 (03:33→14:19)
[2017-04-16] MEDS: oxyCODONE 5 MG Tablet PO ×4 (03:54→23:26)
[2017-04-16 04:13] LABS: Absolute Lymphocyte Count 1.39 X10^3/ul (0.83-4.51); Absolute Neutrophil Count 7.4 X10^3/uL (2.0-7.7); Basophil# 0.05 X10^3/uL; Basophil% 0.5 % (0-1); Eosinophil# 0.35 X10^3/uL; Eosinophils% 3.4 % (0-5); Hematocrit 31.4 % (40-54); Hemoglobin 10.2 g/dl (13.0-16.5); Lymphocyte # 1.39 X10^3/ul (4.0); Lymphocyte % 13.6 % (19-41); Mean Corp Hgb Conc 32.5 g/gl (32-36); Mean Corpuscular Volume 79.9 fL (80-94); Mean Platelet Vol. 10.4 fl (6.2-12.0); Monocyte# 0.93 X10^3/uL; Monocyte% 9.1 % (0-10); Neutrophil # 7.43 X10^3/uL (2.7-7.7); Neutrophil % 72.7 % (47-70); Platelet Count 239 K/mm3 (150-450); RBC Distribution Width CV 15.5 % (11.6-14.6); RBC Distribution Width SD 44.5 fl (35.1-43.9); Red Blood Count 3.93 M/mm3 (4.6-6.2); White Blood Count 10.2 K/mm3 (4.4-11.0)
[2017-04-16 04:18] LABS: Anion Gap 10 (5-15); BUN 11 mg/dL (7-18); BUN/Creat Ratio 13.5 RATIO (10-20); Calcium,Total 7.8 mg/dL (8.5-10.1); Chloride 110 mmol/L (98-107); Creatinine, Serum 0.81 mg/dL (0.70-1.30); EST Glomerular Filtration Rate 108 mL/min (>60); Est Glom Filt Rate - Afr Amer 131 mL/min (>60); Glucose 94 mg/dL (74-106); Potassium 3.7 mmol/L (3.5-5.1); Sodium Level 144 mmol/L (136-145)
[2017-04-16 04:19] LABS: Vancomycin, Trough Level 8.5 ug/mL (5.0-15.0)
[2017-04-16 04:20] LABS: POSITIVE COUNT NO; POSITIVE DIFFERENTIAL NO; POSITIVE MORPHOLOGY NO
[2017-04-16] MEDS: Sucralfate 1 GM Tablet PO ×4 (06:14→21:31)
[2017-04-16] MEDS: tiZANidine HCl 2 MG Tablet 8 MG PO ×3 (06:14→21:31)
[2017-04-16 07:17] VITALS: O2SAT 95
[2017-04-16 08:36] VITALS: BP 107/54; PULSE 77; RESP 16; TEMP 36.9; O2SAT 98
[2017-04-16] MEDS: Ferrous Gluconate 325 MG Tablet PO ×2 (08:39→16:47)
[2017-04-16] MEDS: 0.9% NaCl Peripheral Flush Adult/Peds IV ×2 (08:47→21:33)
[2017-04-16] MEDS: Citalopram 40 MG TABLET PO (09:03)
[2017-04-16] MEDS: Enoxaparin 40 MG/0.4 ML Syringe SC (09:04)
[2017-04-16] MEDS: Pantoprazole Sodium 40 MG Tablet PO (09:05)
[2017-04-16] MEDS: Pramipexole Di-HCl 0.125 MG Tablet PO (09:05)
--- NOTE | 2017-04-16 09:51 | PCM.RX.CS ---
Subjective/Objective Date: 04/16/17 Time: 09:51 Antibiotic: Vancomycin Type of Consult: Follow-up Indications for Therapy: CELLULITIS Labs: Sodium 144 mmol/L (136-145) 04/16/17 03:50 Potassium 3.7 mmol/L (3.5-5.1) 04/16/17 03:50 Chloride 110 mmol/L (98-107) H 04/16/17 03:50 Carbon Dioxide 24.0 mmol/L (21.0-32.0) 04/16/17 03:50 Anion Gap 10 (5-15) 04/16/17 03:50 BUN 11 mg/dL (7-18) 04/16/17 03:50 Creatinine 0.81 mg/dL (0.70-1.30) 04/16/17 03:50 Est GFR (MDRD) Af Amer 131 mL/min (>60) 04/16/17 03:50 Est GFR (MDRD) Non-Af 108 mL/min (>60) 04/16/17 03:50 BUN/Creatinine Ratio 13.5 RATIO (10-20) 04/16/17 03:50 Glucose 94 mg/dL (74-106) 04/16/17 03:50 Vancomycin Trough 8.5 ug/mL (5.0-15.0) 04/16/17 03:50 Pharmacy Plan for Drug Dosing: Pharmacy Service will continue to monitor and adjust dosing as required. Assessment/Plan: ASSESSMENT Pharmacy to manage vancomycin per consult for the treatment of cellulitis. The patient was started on vancomycin 1.5g IV Q12hrs on 04/14/17. A trough was drawn prior to the 4th dose which resulted in a value of 8.5 (drawn 11.5hrs from last dose given). Current culture data shows no growth to date. Given that we are treating cellulitis, will target a trough of 10-15 for this patient until therapy is de-escalated by primary provider. Will increase the vancomycin dose and continue to monitor patient daily. PLAN 1. Discontinue vancomycin 1500mg IV Q12hrs 2. START vancomycin 1750mg IV Q12hrs 3. Pharmacy will continue to monitor renal function, culture data, and labs daily 4. Will not re-order a trough at this time, but will order a trough if therapy is to be continued for the next few days.
--- NOTE | 2017-04-16 11:57 | PCA ---
set pt up for am care
--- NOTE | 2017-04-16 13:49 | PCM.PN.HOSP ---
Patient Problems: Active and Suspected Problems Left leg cellulitis (Acute) Sepsis (Acute) Vitals/I&O's: Vital Signs Temp Pulse Resp BP Pulse Ox 98.5 F 77 16 107/54 L 98 04/16/17 08:36 04/16/17 08:36 04/16/17 08:36 04/16/17 08:36 04/16/17 08:36 Oxygen Delivery Method Room Air Weight: 148.1 kg Body Mass Index (BMI) 39.7 Intake and Output for Last 24 Hours 04/14/17 04/15/17 04/16/17 23:59 23:59 23:59 Intake Total 3287 / 3287 4780 / 4780 2788 / 2788 Output Total 600 / 600 Balance 3287 / 3287 4180 / 4180 2788 / 2788 Microbiology Past 72 Hours 04/14/17 17:30 Stool Stool Occult Blood (MANI) - Final Laboratory Results 04/16/17 03:50: WBC 10.2, RBC 3.93 L, Hgb 10.2 L, Hct 31.4 L, MCV 79.9 L, MCH 26.0 L, MCHC 32.5, RDW 15.5 H, RDW Differential 44.5 H, Plt Count 239, MPV 10.4, Immature Gran % (Auto) 0.700, Neut % (Auto) 72.7 H, Lymph % (Auto) 13.6 L, [place] % (Auto) 9.1, Eos % (Auto) 3.4, Baso % (Auto) 0.5, Absolute Neuts (auto) 7.4, Absolute Lymphs (auto) 1.39, Total Counted Not Reportable 04/16/17 03:50: Sodium 144, Potassium 3.7, Chloride 110 H, Carbon Dioxide 24.0, Anion Gap 10, BUN 11, Creatinine 0.81, Estim Creat Clear Calc 136.20, Est GFR (MDRD) Af Amer 131, Est GFR (MDRD) Non-Af 108, BUN/Creatinine Ratio 13.5, Glucose 94, Calcium 7.8 L 04/16/17 03:50: Vancomycin Trough 8.5 Current Medications Acetaminophen (Tylenol) 650 mg PO Q6H PRN PRN PRN Reason: Mild Pain (scale 0-3)/T>100.7 Al Hydroxide/Mg Hydroxide (Mylanta Ii) 30 ml PO Q6H PRN PRN PRN Reason: Gastric burning Atorvastatin Calcium (Lipitor) 10 mg PO DAILY@2200 [facility] Last Admin: 04/15/17 21:09 Dose: 10 mg Citalopram Hydrobromide (Celexa) 40 mg PO DAILY [facility] Last Admin: 04/16/17 09:03 Dose: 40 mg Docusate Sodium (Colace) 100 mg PO BID [facility] Last Admin: 04/16/17 09:04 Dose: Not Given Enoxaparin Sodium (Lovenox) 40 mg SC DAILY@1000 [facility] Last Admin: 04/16/17 09:04 Dose: 40 mg [facility]ous [facility]con[facility]) [facility] Last Admin: 04/16/17 08:39 Dose: 325 mg Hydralazine HCl (Apresoline) 10 mg IV Q4H PRN PRN PRN Reason: SBP > 160 Sodium Chloride () 1,000 mls @ 150 mls/hr IV .Q6H40M [facility] Last Admin: 04/16/17 03:33 Dose: 150 mls/hr Vancomycin HCl 2,000 mg/ (Sodium Chloride) 540 mls @ 260 mls/hr IV Q12H [facility] Ampicillin Sodium/Sulbactam (Sodium 3 gm/ Sodium Chloride) 112 mls @ 150 mls/hr IV X1 ONE Stop: 04/16/17 14:31 Ampicillin Sodium/Sulbactam (Sodium 3 gm/ Sodium Chloride) 112 mls @ 150 mls/hr IV Q6 [facility] Ibuprofen (Motrin) 800 mg PO TID PRN PRN Reason: PAIN Magnesium Hydroxide (Milk Of Magnesia) 30 ml PO DAILY PRN PRN PRN Reason: Constipation Morphine Sulfate (Morphine) 2 - 4 mg IV Q3H PRN PRN PRN Reason: Severe Pain (pain scale 6-10) Last Admin: 04/16/17 13:25 Dose: 4 mg Morphine Sulfate (Morphine) 1 - 2 mg IV Q4H PRN PRN PRN Reason: Moderate Pain (pain scale 4-5) Nutritional Formula (Lactose Free) (Ensure Enlive) 120 ml PO 4X/DAY [facility] Last Admin: 04/16/17 13:18 Dose: 120 ml Ondansetron HCl (Zofran) 4 mg IV Q8H PRN PRN PRN Reason: NAUSEA Oxycodone HCl (Oxyir) 5 mg PO Q4H PRN PRN PRN Reason: Moderate Pain (pain scale 4-5) Last Admin: 04/16/17 11:31 Dose: 5 mg Pantoprazole Sodium (Protonix) 40 mg PO DAILY [facility] Last Admin: 04/16/17 09:05 Dose: 40 mg Pramipexole Dihydrochloride (Mirapex) 0.125 mg PO DAILY [facility] Last Admin: 04/16/17 09:05 Dose: 0.125 mg Promethazine HCl (Phenergan (Ll)) 12.5 mg IV Q6H PRN PRN PRN Reason: NAUSEA/VOMITING Psyllium Hydrophilic Mucilloid (Metamucil) 1 packet PO DAILY PRN PRN PRN Reason: CONSTIPATION Sodium Chloride () 5 - 30 ml IV UD PRN PRN Reason: SALINE FLUSH Last Admin: 04/16/17 08:47 Dose: 10 ml Sucralfate (Carafate) 1 gm PO 1HR_ACHS [facility] Last Admin: 04/16/17 11:28 Dose: 1 gm Tizanidine HCl (Zanaflex) 8 mg PO Q8 [facility] Last Admin: 04/16/17 06:14 Dose: 8 mg Trazodone HCl (Desyrel) 100 mg PO QHS [facility] Last Admin: 04/15/17 21:09 Dose: 100 mg Assessment/Plan Active and Suspected Problems Left leg cellulitis (Acute) Sepsis (Acute)
[2017-04-16 14:03] VITALS: BP 112/65; PULSE 91; RESP 16; TEMP 36.9; O2SAT 96
--- NOTE | 2017-04-16 16:35 | PCM.PN.HOSP ---
Patient Problems: Active and Suspected Problems Left leg cellulitis (Acute) Sepsis (Acute) Subjective: CC: Left leg cellulitis This is a 46-year-old male who presented with significant left leg swelling and erythema, he is on IV vancomycin. Patient reports no improvement, his leg is still swollen and erythematous. he reports no fever or chills. Vitals/I&O's: Vital Signs Temp Pulse Resp BP Pulse Ox 98.4 F 91 16 112/65 96 04/16/17 14:03 04/16/17 14:03 04/16/17 14:03 04/16/17 14:03 04/16/17 14:03 Oxygen Delivery Method Room Air Weight: 148.1 kg Body Mass Index (BMI) 39.7 Intake and Output for Last 24 Hours 04/14/17 04/15/17 04/16/17 23:59 23:59 23:59 Intake Total 3287 / 3287 4780 / 4780 2788 / 2788 Output Total 600 / 600 Balance 3287 / 3287 4180 / 4180 2788 / 2788 General: Alert, Oriented x3 Oral: Moist Mucosa Neck: Supple, No JVD Lungs: Clear to auscultation Cardiovascular: Regular rate, Normal S1, No murmurs Abdomen: Bowel Sounds Present, Soft, Non Tender, Non-Distended Neurological: Cranial nerves II-XII grossly intact, Motor Exam 5/5 strength throughout Psych/Mental Status: Normal Affect Microbiology Past 72 Hours 04/14/17 17:30 Stool Stool Occult Blood (MANI) - Final Laboratory Results 04/16/17 03:50: WBC 10.2, RBC 3.93 L, Hgb 10.2 L, Hct 31.4 L, MCV 79.9 L, MCH 26.0 L, MCHC 32.5, RDW 15.5 H, RDW Differential 44.5 H, Plt Count 239, MPV 10.4, Immature Gran % (Auto) 0.700, Neut % (Auto) 72.7 H, Lymph % (Auto) 13.6 L, [place] % (Auto) 9.1, Eos % (Auto) 3.4, Baso % (Auto) 0.5, Absolute Neuts (auto) 7.4, Absolute Lymphs (auto) 1.39, Total Counted Not Reportable 04/16/17 03:50: Sodium 144, Potassium 3.7, Chloride 110 H, Carbon Dioxide 24.0, Anion Gap 10, BUN 11, Creatinine 0.81, Estim Creat Clear Calc 136.20, Est GFR (MDRD) Af Amer 131, Est GFR (MDRD) Non-Af 108, BUN/Creatinine Ratio 13.5, Glucose 94, Calcium 7.8 L 04/16/17 03:50: Vancomycin Trough 8.5 Current Medications Acetaminophen (Tylenol) 650 mg PO Q6H PRN PRN PRN Reason: Mild Pain (scale 0-3)/T>100.7 Al Hydroxide/Mg Hydroxide (Mylanta Ii) 30 ml PO Q6H PRN PRN PRN Reason: Gastric burning Atorvastatin Calcium (Lipitor) 10 mg PO DAILY@2200 [facility] Last Admin: 04/15/17 21:09 Dose: 10 mg Citalopram Hydrobromide (Celexa) 40 mg PO DAILY [facility] Last Admin: 04/16/17 09:03 Dose: 40 mg Docusate Sodium (Colace) 100 mg PO BID [facility] Last Admin: 04/16/17 09:04 Dose: Not Given Enoxaparin Sodium (Lovenox) 40 mg SC DAILY@1000 [facility] Last Admin: 04/16/17 09:04 Dose: 40 mg Ferrous Gluconate (Ferrous Gluconate) 325 mg PO BIDCM [facility] Last Admin: 04/16/17 08:39 Dose: 325 mg Hydralazine HCl (Apresoline) 10 mg IV Q4H PRN PRN PRN Reason: SBP > 160 Sodium Chloride () 1,000 mls @ 150 mls/hr IV .Q6H40M [facility] Last Admin: 04/16/17 14:19 Dose: 150 mls/hr Vancomycin HCl 2,000 mg/ (Sodium Chloride) 540 mls @ 260 mls/hr IV Q12H [facility] Ampicillin Sodium/Sulbactam (Sodium 3 gm/ Sodium Chloride) 112 mls @ 150 mls/hr IV Q6 [facility] Ibuprofen (Motrin) 800 mg PO TID PRN PRN Reason: PAIN Magnesium Hydroxide (Milk Of Magnesia) 30 ml PO DAILY PRN PRN PRN Reason: Constipation Morphine Sulfate (Morphine) 2 - 4 mg IV Q3H PRN PRN PRN Reason: Severe Pain (pain scale 6-10) Last Admin: 04/16/17 13:25 Dose: 4 mg Morphine Sulfate (Morphine) 1 - 2 mg IV Q4H PRN PRN PRN Reason: Moderate Pain (pain scale 4-5) Nutritional Formula (Lactose Free) (Ensure Enlive) 120 ml PO 4X/DAY [facility] Last Admin: 04/16/17 13:18 Dose: 120 ml Ondansetron HCl (Zofran) 4 mg IV Q8H PRN PRN PRN Reason: NAUSEA Oxycodone HCl (Oxyir) 5 mg PO Q4H PRN PRN PRN Reason: Moderate Pain (pain scale 4-5) Last Admin: 04/16/17 11:31 Dose: 5 mg Pantoprazole Sodium (Protonix) 40 mg PO DAILY [facility] Last Admin: 04/16/17 09:05 Dose: 40 mg Pramipexole Dihydrochloride (Mirapex) 0.125 mg PO DAILY [facility] Last Admin: 04/16/17 09:05 Dose: 0.125 mg Promethazine HCl (Phenergan (Ll)) 12.5 mg IV Q6H PRN PRN PRN Reason: NAUSEA/VOMITING Psyllium Hydrophilic Mucilloid (Metamucil) 1 packet PO DAILY PRN PRN PRN Reason: CONSTIPATION Sodium Chloride () 5 - 30 ml IV UD PRN PRN Reason: SALINE FLUSH Last Admin: 04/16/17 08:47 Dose: 10 ml Sucralfate (Carafate) 1 gm PO 1HR_ACHS [facility] Last Admin: 04/16/17 15:52 Dose: 1 gm Tizanidine HCl (Zanaflex) 8 mg PO Q8 [facility] Last Admin: 04/16/17 14:10 Dose: 8 mg Trazodone HCl (Desyrel) 100 mg PO QHS [facility] Last Admin: 04/15/17 21:09 Dose: 100 mg Assessment/Plan Active and Suspected Problems Left leg cellulitis (Acute) Sepsis (Acute) 1. Acute Sepsis secondary to Acute LLE Extremity Cellulitis; he is now hemodynamically stable, she has no signs of sepsis at this time. 2. Leg cellulitis; slow improvement with vancomycin, the characteristic of his skin lesion is most likely caused by Streptococcus, will start IV Unasyn. 3 Microcytic Anemia; EGD and colonoscopy as an outpatient. 4. Obesity: Weight loss recommended. 5. Nicotine dependency; cessation is advised. 6. Chronic Back Pain; we will optimize pain control. 7. DVT prophylaxis with Lovenox. Code Visit Inpatient E&M: 53706 Subs Hosp L3
--- NOTE | 2017-04-16 16:43 | PN_ITS ---
Patient Problems: Active and Suspected Problems Left leg cellulitis (Acute) Sepsis (Acute) Subjective: CC: Left leg cellulitis This is a 46-year-old male who presented with significant left leg swelling and erythema, he is on IV vancomycin. Patient reports no improvement, his leg is still swollen and erythematous. he reports no fever or chills. Vitals/I&O's: Vital Signs Temp Pulse Resp BP Pulse Ox 98.4 F 91 16 112/65 96 04/16/17 14:03 04/16/17 14:03 04/16/17 14:03 04/16/17 14:03 04/16/17 14:03 Oxygen Delivery Method Room Air Weight: 148.1 kg Body Mass Index (BMI) 39.7 Intake and Output for Last 24 Hours 04/14/17 04/15/17 04/16/17 23:59 23:59 23:59 Intake Total 3287 / 3287 4780 / 4780 2788 / 2788 Output Total 600 / 600 Balance 3287 / 3287 4180 / 4180 2788 / 2788 General: Alert, Oriented x3 Oral: Moist Mucosa Neck: Supple, No JVD Lungs: Clear to auscultation Cardiovascular: Regular rate, Normal S1, No murmurs Abdomen: Bowel Sounds Present, Soft, Non Tender, Non-Distended Neurological: Cranial nerves II-XII grossly intact, Motor Exam 5/5 strength throughout Psych/Mental Status: Normal Affect Microbiology Past 72 Hours 04/14/17 17:30 Stool Stool Occult Blood (MANI) - Final Laboratory Results 04/16/17 03:50: WBC 10.2, RBC 3.93 L, Hgb 10.2 L, Hct 31.4 L, MCV 79.9 L, MCH 26.0 L, MCHC 32.5, RDW 15.5 H, RDW Differential 44.5 H, Plt Count 239, MPV 10.4 , Immature Gran % (Auto) 0.700, Neut % (Auto) 72.7 H, Lymph % (Auto) 13.6 L, [place] % (Auto) 9.1, Eos % (Auto) 3.4, Baso % (Auto) 0.5, Absolute Neuts (auto) 7.4, Absolute Lymphs (auto) 1.39, Total Counted Not Reportable 04/16/17 03:50: Sodium 144, Potassium 3.7, Chloride 110 H, Carbon Dioxide 24.0, Anion Gap 10, BUN 11, Creatinine 0.81, Estim Creat Clear Calc 136.20, Est GFR ( MDRD) Af Amer 131, Est GFR (MDRD) Non-Af 108, BUN/Creatinine Ratio 13.5, Glucose 94, Calcium 7.8 L 04/16/17 03:50: Vancomycin Trough 8.5 Current Medications Acetaminophen (Tylenol) 650 mg PO Q6H PRN PRN PRN Reason: Mild Pain (scale 0-3)/T>100.7 Al Hydroxide/Mg Hydroxide (Mylanta Ii) 30 ml PO Q6H PRN PRN PRN Reason: Gastric burning Atorvastatin Calcium (Lipitor) 10 mg PO DAILY@2200 [facility] Last Admin: 04/15/17 21:09 Dose: 10 mg Citalopram Hydrobromide (Celexa) 40 mg PO DAILY [facility] Last Admin: 04/16/17 09:03 Dose: 40 mg Docusate Sodium (Colace) 100 mg PO BID [facility] Last Admin: 04/16/17 09:04 Dose: Not Given Enoxaparin Sodium (Lovenox) 40 mg SC DAILY@1000 [facility] Last Admin: 04/16/17 09:04 Dose: 40 mg Ferrous Gluconate (Ferrous Gluconate) 325 mg PO BIDCM [facility] Last Admin: 04/16/17 08:39 Dose: 325 mg Hydralazine HCl (Apresoline) 10 mg IV Q4H PRN PRN PRN Reason: SBP > 160 Sodium Chloride () 1,000 mls @ 150 mls/hr IV .Q6H40M [facility] Last Admin: 04/16/17 14:19 Dose: 150 mls/hr Vancomycin HCl 2,000 mg/ (Sodium Chloride) 540 mls @ 260 mls/hr IV Q12H [facility] Ampicillin Sodium/Sulbactam (Sodium 3 gm/ Sodium Chloride) 112 mls @ 150 mls/ hr IV Q6 [facility] Ibuprofen (Motrin) 800 mg PO TID PRN PRN Reason: PAIN Magnesium Hydroxide (Milk Of Magnesia) 30 ml PO DAILY PRN PRN PRN Reason: Constipation Morphine Sulfate (Morphine) 2 - 4 mg IV Q3H PRN PRN PRN Reason: Severe Pain (pain scale 6-10) Last Admin: 04/16/17 13:25 Dose: 4 mg Morphine Sulfate (Morphine) 1 - 2 mg IV Q4H PRN PRN PRN Reason: Moderate Pain (pain scale 4-5) Nutritional Formula (Lactose Free) (Ensure Enlive) 120 ml PO 4X/DAY [facility] Last Admin: 04/16/17 13:18 Dose: 120 ml Ondansetron HCl (Zofran) 4 mg IV Q8H PRN PRN PRN Reason: NAUSEA Oxycodone HCl (Oxyir) 5 mg PO Q4H PRN PRN PRN Reason: Moderate Pain (pain scale 4-5) Last Admin: 04/16/17 11:31 Dose: 5 mg Pantoprazole Sodium (Protonix) 40 mg PO DAILY [facility] Last Admin: 04/16/17 09:05 Dose: 40 mg Pramipexole Dihydrochloride (Mirapex) 0.125 mg PO DAILY [facility] Last Admin: 04/16/17 09:05 Dose: 0.125 mg Promethazine HCl (Phenergan (Ll)) 12.5 mg IV Q6H PRN PRN PRN Reason: NAUSEA/VOMITING Psyllium Hydrophilic Mucilloid (Metamucil) 1 packet PO DAILY PRN PRN PRN Reason: CONSTIPATION Sodium Chloride () 5 - 30 ml IV UD PRN PRN Reason: SALINE FLUSH Last Admin: 04/16/17 08:47 Dose: 10 ml Sucralfate (Carafate) 1 gm PO 1HR_ACHS [facility] Last Admin: 04/16/17 15:52 Dose: 1 gm Tizanidine HCl (Zanaflex) 8 mg PO Q8 [facility] Last Admin: 04/16/17 14:10 Dose: 8 mg Trazodone HCl (Desyrel) 100 mg PO QHS [facility] Last Admin: 04/15/17 21:09 Dose: 100 mg Assessment/Plan Active and Suspected Problems Left leg cellulitis (Acute) Sepsis (Acute) 1. Acute Sepsis secondary to Acute LLE Extremity Cellulitis; he is now hemodynamically stable, she has no signs of sepsis at this time. 2. Leg cellulitis; slow improvement with vancomycin, the characteristic of his skin lesion is most likely caused by Streptococcus, will start IV Unasyn. 3 Microcytic Anemia; EGD and colonoscopy as an outpatient. 4. Obesity: Weight loss recommended. 5. Nicotine dependency; cessation is advised. 6. Chronic Back Pain; we will optimize pain control. 7. DVT prophylaxis with Lovenox. Code Visit Inpatient E&M: 97172 Subs Hosp L3
[2017-04-16 21:17] VITALS: BP 105/60; PULSE 80; RESP 20; TEMP 36.9; O2SAT 98
[2017-04-16] MEDS: Atorvastatin Calcium 10 MG Tablet PO (21:31)
[2017-04-16] MEDS: Docusate Sodium 100 MG Capsule PO (21:32)
[2017-04-17] MEDS: 0.9% NaCl Peripheral Flush Adult/Peds IV ×4 (01:19→19:35)
[2017-04-17] MEDS: 0.9% Normal Saline 1,000 ML 150 ML IV ×3 (01:23→19:36)
[2017-04-17 04:18] VITALS: BP 130/74; PULSE 87; RESP 18; TEMP 36.6; O2SAT 98
[2017-04-17 05:58] LABS: Absolute Lymphocyte Count 1.55 X10^3/ul (0.83-4.51); Absolute Neutrophil Count 5.6 X10^3/uL (2.0-7.7); Basophil# 0.06 X10^3/uL; Basophil% 0.7 % (0-1); Eosinophil# 0.46 X10^3/uL; Eosinophils% 5.3 % (0-5); Hematocrit 29.7 % (40-54); Hemoglobin 9.6 g/dl (13.0-16.5); Lymphocyte # 1.55 X10^3/ul (4.0); Mean Corp Hgb Conc 32.3 g/gl (32-36); Mean Corpuscular Hgb 25.8 pg (27.0-32.0); Mean Corpuscular Volume 79.8 fL (80-94); Mean Platelet Vol. 10.5 fl (6.2-12.0); Monocyte# 0.86 X10^3/uL; Neutrophil # 5.59 X10^3/uL (2.7-7.7); Neutrophil % 64.7 % (47-70); Platelet Count 272 K/mm3 (150-450); RBC Distribution Width CV 15.6 % (11.6-14.6); RBC Distribution Width SD 44.9 fl (35.1-43.9); Red Blood Count 3.72 M/mm3 (4.6-6.2); White Blood Count 8.6 K/mm3 (4.4-11.0)
[2017-04-17 06:06] LABS: POSITIVE COUNT NO; POSITIVE DIFFERENTIAL NO; POSITIVE MORPHOLOGY NO
[2017-04-17 06:12] LABS: Anion Gap 9 (5-15); BUN 11 mg/dL (7-18); BUN/Creat Ratio 15.1 RATIO (10-20); Chloride 108 mmol/L (98-107); Creatinine, Serum 0.73 mg/dL (0.70-1.30); EST Glomerular Filtration Rate 123 mL/min (>60); Est Glom Filt Rate - Afr Amer 149 mL/min (>60); Estimated Creatinine Clearance 151.12 ml/min; Glucose 86 mg/dL (74-106); Potassium 3.6 mmol/L (3.5-5.1); Sodium Level 141 mmol/L (136-145)
[2017-04-17] MEDS: tiZANidine HCl 2 MG Tablet 8 MG PO ×3 (06:39→21:34)
[2017-04-17] MEDS: Sucralfate 1 GM Tablet PO ×4 (06:39→21:34)
[2017-04-17] MEDS: Ferrous Gluconate 325 MG Tablet PO ×2 (08:46→18:06)
[2017-04-17 09:05] VITALS: BP 118/70; PULSE 82; RESP 18; TEMP 36.7; O2SAT 99
[2017-04-17] MEDS: Pantoprazole Sodium 40 MG Tablet PO (10:40)
[2017-04-17] MEDS: Enoxaparin 40 MG/0.4 ML Syringe SC (10:40)
[2017-04-17] MEDS: Citalopram 40 MG TABLET PO (10:41)
[2017-04-17] MEDS: Ibuprofen 400 MG Tablet 800 MG PO (11:59)
[2017-04-17] MEDS: oxyCODONE 5 MG Tablet PO ×2 (12:00→21:34)
--- NOTE | 2017-04-17 12:00 | PCM.PN.HOSP ---
Patient Problems: Active and Suspected Problems Left leg cellulitis (Acute) Sepsis (Acute) Subjective: CC: Follow-up on left leg cellulitis He has improved significantly with the addition of IV Unasyn. He reports minimal pain in the left leg , he denies any fever, chills , shortness of breath or malaise. Vitals/I&O's: Vital Signs Temp Pulse Resp BP Pulse Ox 98.0 F 82 18 118/70 99 04/17/17 09:05 04/17/17 09:05 04/17/17 09:05 04/17/17 09:05 04/17/17 09:05 Oxygen Delivery Method Room Air Weight: 148.1 kg Body Mass Index (BMI) 39.7 Intake and Output for Last 24 Hours 04/15/17 04/16/17 04/17/17 23:59 23:59 23:59 Intake Total 4780 / 4780 6080 / 6080 2939 / 2939 Output Total 600 / 600 800 / 800 3600 / 3600 Balance 4180 / 4180 5280 / 5280 -661 / -661 General: Alert, Oriented x3 HEENT: Atraumatic Oral: Moist Mucosa Neck: Supple, No JVD Lungs: Clear to auscultation Cardiovascular: Regular rate, Normal S1, Normal S2 Abdomen: Bowel Sounds Present, Soft, Non Tender Musculoskeletal: No Tenderness to Palpation of Joints or Extremities Neurological: Cranial nerves II-XII grossly intact, Motor Exam 5/5 strength throughout Microbiology Past 72 Hours 04/14/17 17:30 Stool Stool Occult Blood (MANI) - Final Laboratory Results 04/17/17 05:10: Sodium 141, Potassium 3.6, Chloride 108 H, Carbon Dioxide 24.0, Anion Gap 9, BUN 11, Creatinine 0.73, Estim Creat Clear Calc 151.12, Est GFR (MDRD) Af Amer 149, Est GFR (MDRD) Non-Af 123, BUN/Creatinine Ratio 15.1, Glucose 86, Calcium 8.0 L 04/17/17 05:10: WBC 8.6, RBC 3.72 L, Hgb 9.6 L, Hct 29.7 L, MCV 79.8 L, MCH 25.8 L, MCHC 32.3, RDW 15.6 H, RDW Differential 44.9 H, Plt Count 272, MPV 10.5, Immature Gran % (Auto) 1.300 H, Neut % (Auto) 64.7, Lymph % (Auto) 18.0 L, [place] % (Auto) 10.0, Eos % (Auto) 5.3 H, Baso % (Auto) 0.7, Absolute Neuts (auto) 5.6, Absolute Lymphs (auto) 1.55, Total Counted Not Reportable Current Medications Acetaminophen (Tylenol) 650 mg PO Q6H PRN PRN PRN Reason: Mild Pain (scale 0-3)/T>100.7 Al Hydroxide/Mg Hydroxide (Mylanta Ii) 30 ml PO Q6H PRN PRN PRN Reason: Gastric burning Atorvastatin Calcium (Lipitor) 10 mg PO DAILY@2200 [facility] Last Admin: 04/16/17 21:31 Dose: 10 mg Citalopram Hydrobromide (Celexa) 40 mg PO DAILY [facility] Last Admin: 04/17/17 10:41 Dose: 40 mg Docusate Sodium (Colace) 100 mg PO BID [facility] Last Admin: 04/17/17 10:41 Dose: Not Given Enoxaparin Sodium (Lovenox) 40 mg SC DAILY@1000 [facility] Last Admin: 04/17/17 10:40 Dose: 40 mg Ferrous Gluconate (Ferrous Gluconate) 325 mg PO BIDCM [facility] Last Admin: 04/17/17 08:46 Dose: 325 mg Hydralazine HCl (Apresoline) 10 mg IV Q4H PRN PRN PRN Reason: SBP > 160 Sodium Chloride () 1,000 mls @ 150 mls/hr IV .Q6H40M [facility] Last Admin: 04/17/17 11:45 Dose: 150 mls/hr Ampicillin Sodium/Sulbactam (Sodium 3 gm/ Sodium Chloride) 112 mls @ 150 mls/hr IV Q6 [facility] Last Admin: 04/17/17 11:49 Dose: 150 mls/hr Ibuprofen (Motrin) 800 mg PO TID PRN PRN Reason: PAIN Magnesium Hydroxide (Milk Of Magnesia) 30 ml PO DAILY PRN PRN PRN Reason: Constipation Morphine Sulfate (Morphine) 2 - 4 mg IV Q3H PRN PRN PRN Reason: Severe Pain (pain scale 6-10) Last Admin: 04/17/17 08:50 Dose: 4 mg Morphine Sulfate (Morphine) 1 - 2 mg IV Q4H PRN PRN PRN Reason: Moderate Pain (pain scale 4-5) Nutritional Formula (Lactose Free) (Ensure Enlive) 120 ml PO 4X/DAY [facility] Last Admin: 04/17/17 10:42 Dose: 120 ml Ondansetron HCl (Zofran) 4 mg IV Q8H PRN PRN PRN Reason: NAUSEA Oxycodone HCl (Oxyir) 5 mg PO Q4H PRN PRN PRN Reason: Moderate Pain (pain scale 4-5) Last Admin: 04/16/17 23:26 Dose: 5 mg Pantoprazole Sodium (Protonix) 40 mg PO DAILY [facility] Last Admin: 04/17/17 10:40 Dose: 40 mg Pramipexole Dihydrochloride (Mirapex) 0.125 mg PO QHS [facility] Promethazine HCl (Phenergan (Ll)) 12.5 mg IV Q6H PRN PRN PRN Reason: NAUSEA/VOMITING Psyllium Hydrophilic Mucilloid (Metamucil) 1 packet PO DAILY PRN PRN PRN Reason: CONSTIPATION Sodium Chloride () 5 - 30 ml IV UD PRN PRN Reason: SALINE FLUSH Last Admin: 04/17/17 11:45 Dose: 10 ml Sucralfate (Carafate) 1 gm PO 1HR_ACHS [facility] Last Admin: 04/17/17 11:46 Dose: 1 gm Tizanidine HCl (Zanaflex) 8 mg PO Q8 [facility] Last Admin: 04/17/17 06:39 Dose: 8 mg Trazodone HCl (Desyrel) 100 mg PO QHS [facility] Last Admin: 04/16/17 21:31 Dose: 100 mg Assessment/Plan Active and Suspected Problems Left leg cellulitis (Acute) Sepsis (Acute) 1. Acute Sepsis secondary to Acute LLE Extremity Cellulitis; he is now hemodynamically stable. 2. Left Leg cellulitis; he has improved with the addition of IV Unasyn, we will discontinue vancomycin. 3 Microcytic Anemia; EGD and colonoscopy as an outpatient. 4. Obesity: Weight loss recommended. 5. Nicotine dependency; cessation is advised. 6. Chronic Back Pain; we will optimize pain control. 7. DVT prophylaxis with Lovenox. 8. Disposition; if the Patient continues to do well he will be discharged home in the next 24-48 hours on oral antibiotics. Code Visit Inpatient E&M: 53956 Subs Hosp L2
--- NOTE | 2017-04-17 12:04 | PN_ITS ---
Patient Problems: Active and Suspected Problems Left leg cellulitis (Acute) Sepsis (Acute) Subjective: CC: Follow-up on left leg cellulitis He has improved significantly with the addition of IV Unasyn. He reports minimal pain in the left leg , he denies any fever, chills , shortness of breath or malaise. Vitals/I&O's: Vital Signs Temp Pulse Resp BP Pulse Ox 98.0 F 82 18 118/70 99 04/17/17 09:05 04/17/17 09:05 04/17/17 09:05 04/17/17 09:05 04/17/17 09:05 Oxygen Delivery Method Room Air Weight: 148.1 kg Body Mass Index (BMI) 39.7 Intake and Output for Last 24 Hours 04/15/17 04/16/17 04/17/17 23:59 23:59 23:59 Intake Total 4780 / 4780 6080 / 6080 2939 / 2939 Output Total 600 / 600 800 / 800 3600 / 3600 Balance 4180 / 4180 5280 / 5280 -661 / -661 General: Alert, Oriented x3 HEENT: Atraumatic Oral: Moist Mucosa Neck: Supple, No JVD Lungs: Clear to auscultation Cardiovascular: Regular rate, Normal S1, Normal S2 Abdomen: Bowel Sounds Present, Soft, Non Tender Musculoskeletal: No Tenderness to Palpation of Joints or Extremities Neurological: Cranial nerves II-XII grossly intact, Motor Exam 5/5 strength throughout Microbiology Past 72 Hours 04/14/17 17:30 Stool Stool Occult Blood (MANI) - Final Laboratory Results 04/17/17 05:10: Sodium 141, Potassium 3.6, Chloride 108 H, Carbon Dioxide 24.0, Anion Gap 9, BUN 11, Creatinine 0.73, Estim Creat Clear Calc 151.12, Est GFR ( MDRD) Af Amer 149, Est GFR (MDRD) Non-Af 123, BUN/Creatinine Ratio 15.1, Glucose 86, Calcium 8.0 L 04/17/17 05:10: WBC 8.6, RBC 3.72 L, Hgb 9.6 L, Hct 29.7 L, MCV 79.8 L, MCH 25.8 L, MCHC 32.3, RDW 15.6 H, RDW Differential 44.9 H, Plt Count 272, MPV 10.5 , Immature Gran % (Auto) 1.300 H, Neut % (Auto) 64.7, Lymph % (Auto) 18.0 L, [place] % (Auto) 10.0, Eos % (Auto) 5.3 H, Baso % (Auto) 0.7, Absolute Neuts (auto ) 5.6, Absolute Lymphs (auto) 1.55, Total Counted Not Reportable Current Medications Acetaminophen (Tylenol) 650 mg PO Q6H PRN PRN PRN Reason: Mild Pain (scale 0-3)/T>100.7 Al Hydroxide/Mg Hydroxide (Mylanta Ii) 30 ml PO Q6H PRN PRN PRN Reason: Gastric burning Atorvastatin Calcium (Lipitor) 10 mg PO DAILY@2200 [facility] Last Admin: 04/16/17 21:31 Dose: 10 mg Citalopram Hydrobromide (Celexa) 40 mg PO DAILY [facility] Last Admin: 04/17/17 10:41 Dose: 40 mg Docusate Sodium (Colace) 100 mg PO BID [facility] Last Admin: 04/17/17 10:41 Dose: Not Given Enoxaparin Sodium (Lovenox) 40 mg SC DAILY@1000 [facility] Last Admin: 04/17/17 10:40 Dose: 40 mg Ferrous Gluconate (Ferrous Gluconate) 325 mg PO BIDCM [facility] Last Admin: 04/17/17 08:46 Dose: 325 mg Hydralazine HCl (Apresoline) 10 mg IV Q4H PRN PRN PRN Reason: SBP > 160 Sodium Chloride () 1,000 mls @ 150 mls/hr IV .Q6H40M [facility] Last Admin: 04/17/17 11:45 Dose: 150 mls/hr Ampicillin Sodium/Sulbactam (Sodium 3 gm/ Sodium Chloride) 112 mls @ 150 mls/ hr IV Q6 [facility] Last Admin: 04/17/17 11:49 Dose: 150 mls/hr Ibuprofen (Motrin) 800 mg PO TID PRN PRN Reason: PAIN Magnesium Hydroxide (Milk Of Magnesia) 30 ml PO DAILY PRN PRN PRN Reason: Constipation Morphine Sulfate (Morphine) 2 - 4 mg IV Q3H PRN PRN PRN Reason: Severe Pain (pain scale 6-10) Last Admin: 04/17/17 08:50 Dose: 4 mg Morphine Sulfate (Morphine) 1 - 2 mg IV Q4H PRN PRN PRN Reason: Moderate Pain (pain scale 4-5) Nutritional Formula (Lactose Free) (Ensure Enlive) 120 ml PO 4X/DAY [facility] Last Admin: 04/17/17 10:42 Dose: 120 ml Ondansetron HCl (Zofran) 4 mg IV Q8H PRN PRN PRN Reason: NAUSEA Oxycodone HCl (Oxyir) 5 mg PO Q4H PRN PRN PRN Reason: Moderate Pain (pain scale 4-5) Last Admin: 04/16/17 23:26 Dose: 5 mg Pantoprazole Sodium (Protonix) 40 mg PO DAILY [facility] Last Admin: 04/17/17 10:40 Dose: 40 mg Pramipexole Dihydrochloride (Mirapex) 0.125 mg PO QHS [facility] Promethazine HCl (Phenergan (Ll)) 12.5 mg IV Q6H PRN PRN PRN Reason: NAUSEA/VOMITING Psyllium Hydrophilic Mucilloid (Metamucil) 1 packet PO DAILY PRN PRN PRN Reason: CONSTIPATION Sodium Chloride () 5 - 30 ml IV UD PRN PRN Reason: SALINE FLUSH Last Admin: 04/17/17 11:45 Dose: 10 ml Sucralfate (Carafate) 1 gm PO 1HR_ACHS [facility] Last Admin: 04/17/17 11:46 Dose: 1 gm Tizanidine HCl (Zanaflex) 8 mg PO Q8 [facility] Last Admin: 04/17/17 06:39 Dose: 8 mg Trazodone HCl (Desyrel) 100 mg PO QHS [facility] Last Admin: 04/16/17 21:31 Dose: 100 mg Assessment/Plan Active and Suspected Problems Left leg cellulitis (Acute) Sepsis (Acute) 1. Acute Sepsis secondary to Acute LLE Extremity Cellulitis; he is now hemodynamically stable. 2. Left Leg cellulitis; he has improved with the addition of IV Unasyn, we will discontinue vancomycin. 3 Microcytic Anemia; EGD and colonoscopy as an outpatient. 4. Obesity: Weight loss recommended. 5. Nicotine dependency; cessation is advised. 6. Chronic Back Pain; we will optimize pain control. 7. DVT prophylaxis with Lovenox. 8. Disposition; if the Patient continues to do well he will be discharged home in the next 24-48 hours on oral antibiotics. Code Visit Inpatient E&M: 74703 Subs Hosp L2
[2017-04-17 15:08] VITALS: BP 128/78; PULSE 81; RESP 18; TEMP 36.6; O2SAT 97
[2017-04-17 19:42] VITALS: BP 120/68; PULSE 81; RESP 18; TEMP 36.6; O2SAT 98
[2017-04-17] MEDS: Pramipexole Di-HCl 0.125 MG Tablet PO (21:34)
[2017-04-17] MEDS: Docusate Sodium 100 MG Capsule PO (21:34)
[2017-04-17] MEDS: Atorvastatin Calcium 10 MG Tablet PO (21:34)
[2017-04-17 23:48] VITALS: BP 132/79; PULSE 80; RESP 18; TEMP 36.8; O2SAT 98
[2017-04-18] MEDS: 0.9% Normal Saline 1,000 ML 150 ML IV ×3 (03:05→17:43)
[2017-04-18] MEDS: tiZANidine HCl 2 MG Tablet 8 MG PO ×3 (05:25→20:49)
[2017-04-18] MEDS: Sucralfate 1 GM Tablet PO ×4 (05:25→20:49)
[2017-04-18 05:28] VITALS: BP 110/67; PULSE 69; RESP 16; TEMP 36.8; O2SAT 99
[2017-04-18] MEDS: Ferrous Gluconate 325 MG Tablet PO ×2 (08:24→17:10)
[2017-04-18] MEDS: Enoxaparin 40 MG/0.4 ML Syringe SC (09:52)
[2017-04-18] MEDS: Pantoprazole Sodium 40 MG Tablet PO (09:52)
[2017-04-18] MEDS: Docusate Sodium 100 MG Capsule PO ×2 (09:52→20:49)
[2017-04-18] MEDS: Citalopram 40 MG TABLET PO (09:52)
[2017-04-18 09:54] VITALS: BP 132/77; PULSE 84; RESP 18; TEMP 37.4; O2SAT 97
[2017-04-18 10:00] VITALS: PULSE 88
[2017-04-18] MEDS: 0.9% NaCl Peripheral Flush Adult/Peds IV ×4 (10:02→17:11)
[2017-04-18] MEDS: oxyCODONE 5 MG Tablet PO (12:31)
[2017-04-18 15:31] VITALS: BP 109/61; PULSE 80; RESP 18; TEMP 36.6; O2SAT 97
--- NOTE | 2017-04-18 16:07 | PCM.PN.HOSP ---
Patient Problems: Active and Suspected Problems Left leg cellulitis (Acute) Sepsis (Acute) Subjective: CC: Follow-up on left leg cellulitis He has improved significantly with the addition of IV Unasyn. He reports minimal pain in the left leg , he denies any fever, chills , shortness of breath or malaise. No acute events reported overnight. Vitals/I&O's: Vital Signs Temp Pulse Resp BP Pulse Ox 97.8 F 80 18 109/61 97 04/18/17 15:31 04/18/17 15:31 04/18/17 15:31 04/18/17 15:31 04/18/17 15:31 Oxygen Delivery Method Room Air Weight: 148.1 kg Body Mass Index (BMI) 39.7 Intake and Output for Last 24 Hours 04/16/17 04/17/17 04/18/17 23:59 23:59 23:59 Intake Total 6080 / 6080 5220 / 5220 2459 / 2459 Output Total 800 / 800 5500 / 5500 3725 / 3725 Balance 5280 / 5280 -280 / -280 -1266 / -1266 General: Alert, Oriented x3 HEENT: Atraumatic Oral: Moist Mucosa Neck: Supple, No JVD Lungs: Clear to auscultation Cardiovascular: Regular rate, Normal S1, Normal S2 Abdomen: Bowel Sounds Present, Soft Extremities: No clubbing Current Medications Acetaminophen (Tylenol) 650 mg PO Q6H PRN PRN PRN Reason: Mild Pain (scale 0-3)/T>100.7 Al Hydroxide/Mg Hydroxide (Mylanta Ii) 30 ml PO Q6H PRN PRN PRN Reason: Gastric burning Atorvastatin Calcium (Lipitor) 10 mg PO DAILY@2200 [facility] Last Admin: 04/17/17 21:34 Dose: 10 mg Citalopram Hydrobromide (Celexa) 40 mg PO DAILY [facility] Last Admin: 04/18/17 09:52 Dose: 40 mg Docusate Sodium (Colace) 100 mg PO BID [facility] Last Admin: 04/18/17 09:52 Dose: 100 mg Enoxaparin Sodium (Lovenox) 40 mg SC DAILY@1000 [facility] Last Admin: 04/18/17 09:52 Dose: 40 mg [facility]ous [facility] Last Admin: 04/18/17 08:24 Dose: 325 mg Hydralazine HCl (Apresoline) 10 mg IV Q4H PRN PRN PRN Reason: SBP > 160 Sodium Chloride () 1,000 mls @ 150 mls/hr IV .Q6H40M [facility] Last Admin: 04/18/17 09:51 Dose: 150 mls/hr Ampicillin Sodium/Sulbactam (Sodium 3 gm/ Sodium Chloride) 112 mls @ 150 mls/hr IV Q6 [facility] Last Admin: 04/18/17 12:26 Dose: 150 mls/hr Ibuprofen (Motrin) 800 mg PO TID PRN PRN Reason: PAIN Last Admin: 04/17/17 11:59 Dose: 800 mg Magnesium Hydroxide (Milk Of Magnesia) 30 ml PO DAILY PRN PRN PRN Reason: Constipation Morphine Sulfate (Morphine) 2 - 4 mg IV Q3H PRN PRN PRN Reason: Severe Pain (pain scale 6-10) Last Admin: 04/18/17 13:53 Dose: 4 mg Morphine Sulfate (Morphine) 1 - 2 mg IV Q4H PRN PRN PRN Reason: Moderate Pain (pain scale 4-5) Nutritional Formula (Lactose Free) (Ensure Enlive) 120 ml PO 4X/DAY [facility] Last Admin: 04/18/17 13:49 Dose: 120 ml Ondansetron HCl (Zofran) 4 mg IV Q8H PRN PRN PRN Reason: NAUSEA Oxycodone HCl (Oxyir) 5 mg PO Q4H PRN PRN PRN Reason: Moderate Pain (pain scale 4-5) Last Admin: 04/18/17 12:31 Dose: 5 mg Pantoprazole Sodium (Protonix) 40 mg PO DAILY [facility] Last Admin: 04/18/17 09:52 Dose: 40 mg Pramipexole Dihydrochloride (Mirapex) 0.125 mg PO QHS [facility] Last Admin: 04/17/17 21:34 Dose: 0.125 mg Promethazine HCl (Phenergan (Ll)) 12.5 mg IV Q6H PRN PRN PRN Reason: NAUSEA/VOMITING Psyllium Hydrophilic Mucilloid (Metamucil) 1 packet PO DAILY PRN PRN PRN Reason: CONSTIPATION Sodium Chloride () 5 - 30 ml IV UD PRN PRN Reason: SALINE FLUSH Last Admin: 04/18/17 13:53 Dose: 10 ml Sucralfate (Carafate) 1 gm PO 1HR_ACHS [facility] Last Admin: 04/18/17 11:34 Dose: 1 gm Tizanidine HCl (Zanaflex) 8 mg PO Q8 [facility] Last Admin: 04/18/17 13:49 Dose: 8 mg Trazodone HCl (Desyrel) 100 mg PO QHS [facility] Last Admin: 04/17/17 21:34 Dose: 100 mg Assessment/Plan Active and Suspected Problems Left leg cellulitis (Acute) Sepsis (Acute) 1. Acute Sepsis secondary to Acute LLE Extremity Cellulitis; he is now hemodynamically stable. 2. Left Leg cellulitis; he has improved with the addition of IV Unasyn, we will continue for the next 24 hours and reassess. 3 Microcytic Anemia; recommend EGD and colonoscopy as an outpatient. 4. Obesity: Weight loss recommended. 5. Nicotine dependency; cessation is advised. 6. Chronic Back Pain; we will optimize pain control. 7. DVT prophylaxis with Lovenox. 8. Disposition; if the Patient continues to do well he will be discharged home in the next 24 hours on oral antibiotics. Code Visit Inpatient E&M: 80880 Subs Hosp L2
[2017-04-18] MEDS: Pramipexole Di-HCl 0.125 MG Tablet PO (20:52)
[2017-04-18] MEDS: Atorvastatin Calcium 10 MG Tablet PO (20:54)
[2017-04-18 21:30] VITALS: BP 135/69; PULSE 79; RESP 18; TEMP 37; O2SAT 97
[2017-04-19] MEDS: 0.9% Normal Saline 1,000 ML 150 ML IV ×2 (00:34→09:21)
[2017-04-19 03:02] VITALS: BP 108/71; PULSE 69; RESP 18; TEMP 36.8; O2SAT 96
[2017-04-19] MEDS: Sucralfate 1 GM Tablet PO (06:31)
[2017-04-19] MEDS: tiZANidine HCl 2 MG Tablet 8 MG PO (06:31)
[2017-04-19 09:02] VITALS: BP 105/74; PULSE 73; RESP 16; TEMP 36.4; O2SAT 100
[2017-04-19] MEDS: Enoxaparin 40 MG/0.4 ML Syringe SC (09:20)
[2017-04-19] MEDS: Citalopram 40 MG TABLET PO (09:21)
[2017-04-19] MEDS: Ferrous Gluconate 325 MG Tablet PO (09:21)
[2017-04-19] MEDS: Pantoprazole Sodium 40 MG Tablet PO (09:21)
[2017-04-19] MEDS: 0.9% NaCl Peripheral Flush Adult/Peds IV (09:25)
--- NOTE | 2017-04-19 11:59 | PCM.DC ---
- Discharge Diagnoses Current Active Problems: Current Active and Chronic Problems Anxiety and depression (Chronic) Obesity (BMI 30-39.9) (Chronic) Hyperlipidemia (Chronic) GERD (gastroesophageal reflux disease) (Chronic) Chronic back pain (Chronic) RLS (restless legs syndrome) (Chronic) Insomnia (Chronic) Left leg cellulitis (Acute) Sepsis (Acute) You will use the following diet at home:: No restrictions Discharge Activity: Return to Normal Activity Allergies/Adverse Reactions: Allergies celecoxib [From Celebrex] Allergy (Verified 04/14/17 05:57) Hives Medications to take at Discharge Citalopram Hydrobromide [Celexa] 40 mg PO DAILY 06/21/13 Lovastatin [Mevacor] 40 mg PO DAILY 06/21/13 Omeprazole [Prilosec] 40 mg PO DAILY 06/21/13 Pramipexole Di-HCl [Mirapex] 0.125 mg PO DAILY 06/21/13 Tizanidine HCl [Zanaflex] 8 mg PO Q8H 06/21/13 Trazodone HCl [Desyrel] 100 mg PO QHS 06/21/13 Sucralfate [Carafate] 1 gm PO 4X/DAY #60 tablet 08/20/14 Amoxicillin/Potassium Clav [Augmentin 875-125 Tablet] 1 ea PO BID #14 tab 04/19/17 The following prescriptions were given: Amoxicillin/Potassium Clav [Augmentin 875-125 Tablet] 1 ea PO BID #14 tab Primary Care Physician: Care Physician,No Primary [Primary Care Provider] - In 1 Week
--- NOTE | 2017-04-19 12:00 | DS.PCM_ITS ---
Discharge Date and Diagnosis Date of Admission: 04/16/17 Date of Discharge: 04/19/17 - Primary Discharge Diagnosis Active and Suspected Problems Left leg cellulitis (Acute) Sepsis (Acute) - Secondary Discharge Diagnosis Chronic Problems Anxiety and depression (Chronic) Obesity (BMI 30-39.9) (Chronic) Hyperlipidemia (Chronic) GERD (gastroesophageal reflux disease) (Chronic) Chronic back pain (Chronic) RLS (restless legs syndrome) (Chronic) Insomnia (Chronic) Hospital Course and Treatment Summary of Care Provided: The patient is a 46 y/o M w/ PMHx: Chronic Back Pain, RLS, Anxiety and Depression, Obesity, HLD, RLS, Insomnia, GERD, Tobacco who presented to the [facility] ED on 04/14/17 with LLE pain, progressively worsening with onset erythema extending from the ankle to knee, increased warmth to touch, increasing edema with associated with fever and chills . Patient was diagnosed with cellulitis and sepsis, he was. Placed on IV vancomycin and admitted to the hospital with slow improvement and patient was changed to Unasyn as the culprit organism was most likely due to Streptococcus due to the nature of the skin lesions. Improved significantly after initiation of Unasyn and vancomycin was stopped. He was then transitioned to oral Augmentin and discharged home in a stable condition. Physical exam at the time of discharge; vital signs were stable. He was alert and oriented to time place and person. He did not appear to be any form of distress. S1 and S2 heard no murmur or gallop Lung exam was clear to auscultation with no adventitious sounds. Abdomen was soft nontender with normal bowel sounds. extremity exam did not reveal any edema, palpable pulses bilaterally. Neurologic exam was grossly intact. Skin; resolving left leg erythema and swelling. Discharge Diet: No Restrictions Home Medications: Medications to take at Discharge Citalopram Hydrobromide [Celexa] 40 mg PO DAILY 06/21/13 Lovastatin [Mevacor] 40 mg PO DAILY 06/21/13 Omeprazole [Prilosec] 40 mg PO DAILY 06/21/13 Pramipexole Di-HCl [Mirapex] 0.125 mg PO DAILY 06/21/13 Tizanidine HCl [Zanaflex] 8 mg PO Q8H 06/21/13 Trazodone HCl [Desyrel] 100 mg PO QHS 06/21/13 Sucralfate [Carafate] 1 gm PO 4X/DAY #60 tablet 08/20/14 Acetaminophen [Tylenol] 650 mg PO 4X/DAY PRN PRN 5 Days tablet 04/19/17 Amoxicillin/Potassium Clav [Augmentin 875-125 Tablet] 1 ea PO BID #14 tab Following Prescrptions Were Given to Patient: Acetaminophen [Tylenol] 650 mg PO 4X/DAY PRN PRN 5 Days tablet PRN Reason: Pain Amoxicillin/Potassium Clav [Augmentin 875-125 Tablet] 1 ea PO BID #14 tab Primary Care Physician: Care Physician,No Primary [Primary Care Provider] - In 1 Week Disposition: Home Patient Condition:: Good Meaningful Use Info Meaningful Use Diagnoses (Choose all that apply): None applicable Code Visit Inpatient E&M: 20974 Disch Hosp
[2017-04-19] MEDS: oxyCODONE 5 MG Tablet PO (12:22)
== END 2017-04-19 14:00 | disposition home or self-care (01) | DRG 872 ==
LOC: ED 06:26 → MS3 07:15
PROVIDERS: Admitting Provider Family Medicine; Emergency Provider Emergency Medicine; Visit Provider Internal Medicine
DX: A41.9 Sepsis, unspecified organism (principal); E87.1 Hypo-osmolality and hyponatremia; L03.116 Cellulitis of left lower limb; E66.9 Obesity, unspecified; F17.290 Nicotine dependence, other tobacco product, uncomplicated; D50.9 Iron deficiency anemia, unspecified; E78.5 Hyperlipidemia, unspecified; G25.81 Restless legs syndrome; K21.9 Gastro-esophageal reflux disease without esophagitis; Z68.39 Body mass index [BMI] 39.0-39.9, adult; M54.9 Dorsalgia, unspecified; G89.29 Other chronic pain; F41.9 Anxiety disorder, unspecified; F32.9 Major depressive disorder, single episode, unspecified; G47.00 Insomnia, unspecified; B95.5 Unspecified streptococcus as the cause of diseases classified elsewhere
CPT/HCPCS: 36415; 80048; 80053; 80202; 82274; 82728; 83036; 83540; 83550; 83605; 83735; 85025; 85610; 85730; 87040; 93005; 93971; 97802; 99283; 99406; J7030; J7040; A4216; J0295

== ENCOUNTER → 2017-04-28 08:53 | Outpatient (CLI) | payer OTHER, SELFPAY ==
--- NOTE | 2017-04-28 09:13 | MRI_ITS ---
STUDY: MRI LUMBAR SPINE WITHOUT CONTRAST REASON FOR EXAM: Male, 46 years old. back pain, right leg pain TECHNIQUE: Standardized fat and water weighted pulse sequences were obtained in the sagittal and axial planes. COMPARISON: None FINDINGS: T12-L1: Endplate spondylosis. Decreased disc height and small circumferential disc bulge. Degenerative changes of the bilateral facet joints. Mild narrowing of the central canal and bilateral intervertebral neural foramina. Normal lumbar lordosis. There is a mild dextroscoliosis of the lumbar spine. Normal conus medullaris that terminates at the L1 level. 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 L1-2: Endplate spondylosis. Decreased disc height and small circumferential disc bulge. Degenerative changes of the bilateral facet joints. Mild narrowing of the central canal and bilateral intervertebral neural foramina. L2-3: Endplate spondylosis. Decreased disc height and small circumferential disc bulge. Superimposed left foraminal disc herniation impinging on the left L2 nerve root. Degenerative changes of the bilateral facet joints. Mild narrowing of the central canal and bilateral intervertebral neural foramina. L3-4: Endplate spondylosis. Decreased disc height and small circumferential disc bulge. Degenerative changes of the bilateral facet joints. Mild narrowing of the central canal. Moderate narrowing of the bilateral intervertebral neural foramina. L4-5: Endplate spondylosis. Decreased disc height and small circumferential disc bulge. Degenerative changes of the bilateral facet joints. Mild narrowing of the central canal. Moderate narrowing of the bilateral intervertebral neural foramina. L5-S1: Endplate spondylosis. Decreased disc height and small circumferential disc bulge. Degenerative changes of the bilateral facet joints. Mild narrowing of the central canal and bilateral intervertebral neural foramina. Normal visualized sacral ala. Normal visualized paraspinous soft tissue structures. MRI/Spine Lumbar (Routine) IMPRESSION: Multilevel degenerative changes, as described above. 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 Electronically Signed: Sarah Urban MD at 11:03 EDT Tel , Service support ,
== END ==
PROVIDERS: Visit Provider Anesthesiology Pain Medicine
DX: M54.17 Radiculopathy, lumbosacral region (principal); M51.37 Other intervertebral disc degeneration, lumbosacral region; M47.817 Spondylosis without myelopathy or radiculopathy, lumbosacral region; M51.26 Other intervertebral disc displacement, lumbar region; M48.07 Spinal stenosis, lumbosacral region
CPT/HCPCS: 72148

== ENCOUNTER → 2018-09-06 | Outpatient (CLI) | payer OTHER, SELFPAY ==
[2017-04-14 07:59] VITALS: BMI 39.7
--- NOTE | 2018-09-06 15:12 | RAD_ITS ---
STUDY: X-RAY - RIGHT KNEE REASON FOR EXAM: Male, 48 years old. Knee pain. TECHNIQUE: 4 view(s) of the knee. COMPARISON: None. FINDINGS: Normal visualized distal femur. Normal visualized proximal tibia and fibula. Normal proximal tibiofibular articulation. There is no demonstrated fracture. [id number] narrowing of the medial tibiofemoral compartment without significant osteophytes. 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 Small effusion. The soft tissue structures are unremarkable. RAD/Knee 4 or More Views IMPRESSION: No acute abnormalities. [id number] degenerative changes. Electronically Signed: Jw Kemp MD at 15:57 EDT , Service support ,
--- NOTE | 2018-09-06 15:12 | RAD_ITS ---
STUDY: X-RAY - LEFT KNEE REASON FOR EXAM: Male, 48 years old. Pain. TECHNIQUE: 4 view(s) of the knee. COMPARISON: None. FINDINGS: Normal visualized distal femur. Normal visualized proximal tibia and fibula. Normal proximal tibiofibular articulation. There is no demonstrated fracture. Normal medial femorotibial compartment. Normal lateral femorotibial compartment. Normal patellofemoral articulation. There is a soft tissue prominence in the suprapatellar region suggesting a minimal joint effusion. The soft tissue structures are unremarkable. RAD/Knee 4 or More Views IMPRESSION: Possible minimal effusion, otherwise negative Electronically Signed: Jw Kemp MD at 15:58 EDT , Service support ,
== END | disposition home or self-care (01) ==
LOC: RAD 15:10
PROVIDERS: Referring Provider Anesthesiology Pain Medicine; Visit Provider Anesthesiology Pain Medicine
DX: M25.562 Pain in left knee (principal); M25.561 Pain in right knee
CPT/HCPCS: 73564

== ENCOUNTER → 2020-05-07 10:14 | Outpatient (CLI) | payer OTHER, SELFPAY ==
--- NOTE | 2020-05-07 10:45 | MRI_ITS ---
STUDY: MRI RIGHT KNEE REASON FOR EXAM: Right knee pain, especially behind the patella, no specific injury. TECHNIQUE: Standardized fat and water weighted pulse sequences were obtained in all 3 orthogonal planes. COMPARISON: Radiographs 03/19/2020. FINDINGS: There is is a small subtle horizontal tear of the free margin of the posterior horn of the medial meniscus (proton-density sagittal image 29). Normal hyaline cartilage of the medial femorotibial compartment. There are small marginal osteophytes of the medial femorotibial compartment. Normal medial femoral condyle and tibial plateau. Normal medial collateral ligamentous complex (MCL). Normal distal semimembranosus, gracilis and semitendinosus tendons. There is a horizontal tear of the free margin of the body and anterior horn of the lateral meniscus (proton-density coronal images 13-16; proton-density sagittal images 6, 7) with a small parameniscal cyst (T2 coronal images 12-14). There is arthrosis of the lateral femorotibial compartment with partial-thickness chondral loss of the posterior weightbearing lateral femoral condyle (T2 sagittal image 6). Normal lateral femoral condyle and tibial plateau. Normal proximal tibiofibular articulation. Normal lateral collateral (fibular) ligament. Normal popliteus tendon. Normal biceps femoris tendon. Normal anterior cruciate ligament (ACL). Normal posterior cruciate ligament (PCL). Normal congruent patellofemoral articulation. There is arthrosis of the patellofemoral compartment with chondral thinning of the lateral patellar facet (T2 axial image 9) and femoral trochlea (T2 axial image 15) with mild subchondral bone edema of the femoral trochlea. Normal medial and lateral patellar retinaculum. Normal visualized quadriceps tendon. Normal patellar tendon. Normal Hoffa''s fat pad. There is a small joint effusion. The soft tissues are unremarkable. The otherwise visualized osseous structures are unremarkable. MRI/Lower Ext Joint Only (Routine) IMPRESSION: Lateral meniscal tear with small parameniscal cyst. Small subtle medial meniscal tear. 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 Small joint effusion. Electronically Signed: Timothy Hdz MD at 11:58 EDT Tel , Service support ,
== END ==
PROVIDERS: PCP Physician Assistant; Referring Provider Orthopaedic Surgery; Visit Provider Orthopaedic Surgery
DX: M25.561 Pain in right knee (principal)
CPT/HCPCS: 73721

== ENCOUNTER 2020-06-28 05:42 | Day surgery (SDC) | payer OTHER, SELFPAY ==
[2020-06-28 06:17] VITALS: BP 122/82; PULSE 64; RESP 18; TEMP 36.6; O2SAT 98; BMI 37.7
[2020-06-28] MEDS: Lactated Ringers 1,000 ML 100 ML IV (06:42)
[2020-06-28] MEDS: Epinephrine (1 mg/ml) 1 MG/ML VIAL (07:33)
[2020-06-28] MEDS: Bupiv/Epi 0.25% 30 ML Vial (08:14)
--- NOTE | 2020-06-28 08:18 | PCM.OPRPT ---
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 Trujillo Type of Anesthesia: General/Supplemental Admit VTE Documentation VTE Present on Admission: No VTE Mechan Device Prophylaxis: SCD's VTE Pharm Prophylaxis ordered?: No Reason prophylaxis not ordered:: Procedure Not Indicated
[2020-06-28 08:30] VITALS: BP 122/82; BP 127/91; PULSE 63; RESP 16; TEMP 36.9; O2SAT 94
[2020-06-28 08:45] VITALS: BP 122/82; BP 123/84; PULSE 61; RESP 16; O2SAT 93
--- NOTE | 2020-06-28 08:56 | EX.PCM.DISCH ---
Discharge Instructions Diet Discharge Diet: No restrictions Activity Discharge Activity: May Shower Return to work on:: 07/12/20 May shower in (days): 3 May resume sexual activity in: No Restrictions Ice area for (Minutes): 30 Weight Bearing Status: Weight bearing as tolerated Lifting Restrictions: 20# Keep extremity elevated above heart level: Operative Extremity Dressing / Incision Call your doctor if your incision/area has: Continuous Slow Oozing, Sudden Increased Bleeding, Increased Pain/ Swelling, Increased Redness and Foul Smelling Discharge Call your doctor if you observe: Fever of 101 or Higher Suture Line Care: Avoid Pulling/Pushing Change Dressing in: 2 days Remove Dressing in: do not remove dressing Cleanse incision/area with: Do not get Incision Wet Follow Up Care Please Follow Up With: Dr. Trujillo When: as scheduled Test Results: Test results from this visit will be discussed in further detail at your follow-up appointment, if applicable. Discharge Plan Admission Attending Provider: Ignacio Trujillo Primary Care Provider: Jenny Tellez Instructions Patient Instructions: After Knee Arthroscopy Discharge Orders/Prescriptions Prescriptions: Continued citalopram [Celexa] 40 MG tablet 40 mg PO DAILY RF: 0 tizanidine [Zanaflex] 4 MG tablet 8 mg PO Q8H RF: 0 omeprazole [Prilosec] 40 MG capsule,delayed release(DR/EC) 40 mg PO BID RF: 0 trazodone 100 MG tablet 100 mg PO QHS RF: 0 pramipexole [Mirapex] 0.125 MG tablet 0.125 mg PO DAILY RF: 0 Lovastatin [Mevacor] 40 MG tablet 40 mg PO DAILY RF: 0 acetaminophen [Tylenol] 325 MG tablet 650 mg PO 4X/DAY PRN PRN (Reason: Pain) 5 Days RF: 0 tramadol 50 mg tablet 50 mg PO BID RF: 0 Referrals / Follow Up: Ignacio Trujillo DO [STAFF PHYSICIAN] - Disposition Disposition (needs filled in before D/C Order can be placed): Home, self care
[2020-06-28 08:59] VITALS: BP 118/69; BP 122/82; PULSE 62; RESP 16; TEMP 36.7; O2SAT 97
[2020-06-28] MEDS: HYDROcodone Bitartrate/Apap 5/325 Tablet PO (09:18)
[2020-06-28 09:56] VITALS: BP 122/82; BP 127/73; PULSE 65; RESP 16; TEMP 36.2; O2SAT 99
== END 2020-06-28 10:05 | disposition home or self-care (01) ==
LOC: SDC 05:43 → AC 05:43
PROVIDERS: PCP Physician Assistant; Referring Provider Orthopaedic Surgery; Visit Provider Orthopaedic Surgery
PROC: (CPT 29870; principal; 2020-06-28 07:10)
DX: M23.203 Derangement of unspecified medial meniscus due to old tear or injury, right knee (principal); M23.200 Derangement of unspecified lateral meniscus due to old tear or injury, right knee; M94.261 Chondromalacia, right knee; F32.9 Major depressive disorder, single episode, unspecified; K21.9 Gastro-esophageal reflux disease without esophagitis; G47.30 Sleep apnea, unspecified; Z79.52 Long term (current) use of systemic steroids; F17.210 Nicotine dependence, cigarettes, uncomplicated; Z79.899 Other long term (current) drug therapy
CPT/HCPCS: 01400; 29880; J7120; J2405

== ENCOUNTER 2020-09-12 10:12 | Emergency (ER) | payer OTHER, SELFPAY ==
[2020-09-12 10:13] VITALS: BP 159/89; PULSE 88; RESP 16; TEMP 36.4; O2SAT 100; BMI 38.9
--- NOTE | 2020-09-12 10:39 | RAD_ITS ---
STUDY: X-RAY - RIGHT KNEE REASON FOR EXAM: Male, 50 years old. pain TECHNIQUE: 4 view(s) of the knee. COMPARISON: None. FINDINGS: Normal visualized distal femur. Normal visualized proximal tibia and fibula. Normal proximal tibiofibular articulation. There is mild degenerative arthrosis of the medial femorotibial compartment. There is mild degenerative arthrosis of the lateral femorotibial compartment. There is mild degenerative arthrosis of the patellofemoral articulation. There is a soft tissue prominence in the suprapatellar region suggesting a small volume joint effusion. The soft tissue structures are unremarkable. RAD/Knee 4 or More Views IMPRESSION: Degenerative arthrosis. Electronically Signed: Vickey Maldonado MD at 11:41 EDT Tel , Service support ,
--- NOTE | 2020-09-12 12:33 | EDS_ITS ---
HPI History of Present Illness Chief Complaint: Lower Extremity Injury Detail of Chief Complaint: Right knee pain Informant: patient Onset/Context/Timing Onset: Weeks Current Severity: Mild Maximum Severity: Moderate Narrative Narrative: Patient presents secondary to right knee pain. He had surgery on his right knee 3 months ago. At that time he had a meniscal repair. He was cleared to go back to work 3 weeks ago and states since returning to work he had increased pain and swelling to his right knee. 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 He states he feels that the joint is popping when he takes a step. Patient reports no numbness or tingling. Patient is currently on tramadol from his pain management doctor. He has an appointment to see Dr. Trujillo on September 21. [facility] Medical History Alcohol abuse Arthritis BiPAP (biphasic positive airway pressure) dependence Depression GERD (gastroesophageal reflux disease) Hiatal hernia Injury of back Loose, teeth Restless legs Sleep apnea Smoker Wears glasses Home Medications Lovastatin [Mevacor] 40 mg PO DAILY 06/21/13 [History Last Taken Unknown] citalopram [Celexa] 40 mg PO DAILY 06/21/13 [History Last Taken Unknown] omeprazole [Prilosec] 40 mg PO BID 06/21/13 [History Last Taken Unknown] pramipexole [Mirapex] 0.25 mg PO DAILY 06/21/13 [History Last Taken Unknown] tizanidine [Zanaflex] 8 mg PO Q8H 06/21/13 [History Last Taken Unknown] trazodone 100 mg PO QHS 06/21/13 [History Last Taken Unknown] tramadol 50 mg PO BID 06/16/20 [History Last Taken Unknown] levothyroxine 25 mcg PO DAILY 09/12/20 [History Last Taken Unknown] prednisone 60 mg PO DAILY #15 tab 09/12/20 [Rx Last Taken Unknown] Allergy/AdvReac Type Severity Reaction Status Date / Time celecoxib [From Celebrex] Allergy Hives Verified 09/12/20 10:16 Surgical History Hx of colonoscopy Social History Smoking Status: Current every day smoker tobacco type: e-cigarettes ROS ROS ED Constitutional Constitutional ED: Denies chills or fever(s) Eyes Eyes: Denies change in vision ENT ENT ED: Denies sore throat Cardiovascular Cardiovascular: Denies chest pain Respiratory/Chest Respiratory/Chest: Denies cough or dyspnea Gastrointestinal Gastrointestinal: Denies abdominal pain, diarrhea, nausea or vomiting Genitourinary Genitourinary ED: Denies dysuria Musculoskeletal Musculoskeletal: Reports arthralgias; Denies back pain Integumentary Denies rash Neurologic Neurologic: Denies headache(s) or weakness Psychiatric Psychiatric: Denies anxiety or depression Allergic/Immunologic Allergic/Immunologic ED: Denies urticaria EXAM Physical Exam Const Vital Signs: 09/12/20 10:13 Temperature 97.5 F L Temperature Source Temporal Pulse Rate 88 Respiratory Rate 16 Blood Pressure 159/89 H Blood Pressure Mean 112 Pulse Ox 100 Oxygen Delivery Method Room Air Positive well nourished and well developed General Appearance ED: well developed HEENT Reports normocephalic and head/scalp atraumatic Eyes PERRL and EOMs intact bilaterally Neck supple Chest Wall inspection of chest normal and palpation of chest normal Resp normal respiratory effort and clear to auscultation bilaterally Cardio regular rate and regular rhythm GI normal to inspection, nondistended, normoactive bowel sounds Palpation: soft Extremity Extremity Narrative: Mild times location of the anterior knee. Ligaments are tight on testing. No joint line tenderness. Strong distal pulses noted. No tenderness over the calf. Neuro oriented x3 and no sensory deficits noted Sensorium / Orientation: alert Motor Exam: strength 5/5 throughout Psych mental status grossly normal Skin no rashes or lesions noted MDM MDM MDM Narrative Medical decision making narrative: Right knee x-rays are obtained. Radiography Diagnostic Testing: Radiology Impression Knee X-Ray 09/12/20 10:39 IMPRESSION: Degenerative arthrosis. Electronically Signed: Vickey Maldonado MD at 11:41 EDT Tel , Service support , Treatment and Re-Evaluation Comments:: X-rays per my interpretation reveal no acute findings. Radiology interpreted patient is reviewed. Test results discussed with the patient. He does have arthritic changes in his knee. We will treat him with a short burst of steroids to help calm the inflammation. He will continue to wear his knee brace and follow-up with Dr. Trujillo on the as scheduled. Discharge Plan Triage Chief Complaint: Lower Extremity Injury ED Provider: Eryn Rosenbaum Dx/Rx/DC Orders Clinical Impression: Sprain of right knee Instructions: ED Knee Sprain Prescriptions: New prednisone 20 mg tablet 60 mg PO DAILY Qty: 15 RF: 0 No Action citalopram [Celexa] 40 MG tablet 40 mg PO DAILY RF: 0 tizanidine [Zanaflex] 4 MG tablet 8 mg PO Q8H RF: 0 omeprazole [Prilosec] 40 MG capsule,delayed release(DR/EC) 40 mg PO BID RF: 0 trazodone 100 MG tablet 100 mg PO QHS RF: 0 pramipexole [Mirapex] 0.125 MG tablet 0.25 mg PO DAILY RF: 0 Lovastatin [Mevacor] 40 MG tablet 40 mg PO DAILY RF: 0 tramadol 50 mg tablet 50 mg PO BID RF: 0 levothyroxine 25 mcg Tablet 25 mcg PO DAILY RF: 0 Primary Care Provider: Jenny Tellez Referrals: Ignacio Trujillo DO [STAFF PHYSICIAN] - As soon as possible Jenny Tellez PA [Primary Care Provider] - Disposition Disposition: Home, Self Care Discharge Date/Time: 09/12/20 12:51
[2020-09-12] MEDS: predniSONE 20 MG Tablet 60 MG PO (12:49)
== END 2020-09-12 12:51 | disposition home or self-care (01) ==
PROVIDERS: Emergency Provider Emergency Medicine; PCP Physician Assistant
DX: S83.91XA Sprain of unspecified site of right knee, initial encounter (principal); M17.11 Unilateral primary osteoarthritis, right knee; F32.9 Major depressive disorder, single episode, unspecified; K21.9 Gastro-esophageal reflux disease without esophagitis; F17.290 Nicotine dependence, other tobacco product, uncomplicated; Z79.52 Long term (current) use of systemic steroids; Z79.899 Other long term (current) drug therapy; X50.1XXA Overexertion from prolonged static or awkward postures, initial encounter; Y93.89 Activity, other specified; Y92.89 Other specified places as the place of occurrence of the external cause; Y99.8 Other external cause status
CPT/HCPCS: 73564; 99283

== ENCOUNTER → 2022-12-07 | Outpatient (CLI) | payer OTHER, SELFPAY ==
[2022-12-07 18:40] LABS: HIV - WCH Non-Reactive (Nonreactive); Hepatitis B Surface Antibody Non-Reactive; Syphilis Antibodies Non-reactive
[2022-12-09 07:08] LABS: HEPATITIS B SURFACE AG Negative (Negative); Hep C Antibodies Non Reactive (Non Reactive); Hepatitis A AB, Total Negative (Negative); Hepatitis A IgM Antibody Negative (Negative); Hepatitis B Core AB IgM Negative (Negative)
== END | disposition home or self-care (01) ==
LOC: MTLAB 14:59
PROVIDERS: PCP Physician Assistant; Referring Provider Dermatology; Visit Provider Dermatology
DX: A63.0 Anogenital (venereal) warts (principal)
CPT/HCPCS: 36415; 80074; 86703; 86706; 86708; 86780